=== PATIENT | male | born 1945 | race Caucasian/White ===

== ENCOUNTER 2022-05-12 06:00 | Outpatient (RCR) | payer OTHER, SELFPAY | END 2022-06-06 23:59 | disposition home or self-care (01) | LOC: AST 06:00 | PROVIDERS: Visit Provider Family Medicine | DX: R13.10 Dysphagia, unspecified (principal) | CPT/HCPCS: 92610 ==

== ENCOUNTER → 2022-08-09 09:00 | Outpatient (BNVA) | payer OTHER, SELFPAY | PROVIDERS: Visit Provider Internal Medicine Pulmonary Disease | DX: J44.1 Chronic obstructive pulmonary disease with (acute) exacerbation (principal); J96.11 Chronic respiratory failure with hypoxia; R42 Dizziness and giddiness; Z99.81 Dependence on supplemental oxygen; Z87.891 Personal history of nicotine dependence; M79.642 Pain in left hand; R20.0 Anesthesia of skin | CPT/HCPCS: 99214 ==

== ENCOUNTER → 2022-08-24 15:01 | Outpatient (BNVA) | payer OTHER, SELFPAY | PROVIDERS: Visit Provider Nurse Practitioner Family | DX: D17.1 Benign lipomatous neoplasm of skin and subcutaneous tissue of trunk (principal) | CPT/HCPCS: 88304 ==

== ENCOUNTER 2023-01-24 06:59 | Outpatient (CLI) | payer OTHER, SELFPAY ==
--- NOTE | 2023-01-24 07:20 | USCV_ITS ---
Diogenes Menendez Age: 77 Gender: M : 1945 Exam Date: 01/24/2023 08:12 Ordering Phys: René Logan MD Technologist: Lulu Shah [place]am [place] [facility] [place]: SOB COPD STAGE 4 BP: 140 / 67 HR: 77 Rhythm: Sinus Technical Quality: Adequate MEASUREMENTS (Male / Female) Normal Values 2D ECHO LV Diastolic Diameter PLAX 3.7 cm 4.2 - 5.9 / 3.9 - 5.3 cm LV Systolic Diameter PLAX 3.6 cm LV Chamber Size 3.0 cm IVS Diastolic Thickness 1.4 cm 0.6 - 1.0 / 0.6 - 0.9 cm IVS Systolic Thickness 1.5 cm LVPW Diastolic Thickness 1.8 cm 0.6 - 1.0 / 0.6 - 0.9 cm LVPW Systolic Thickness 1.6 cm RV Chamber Size 5.3 cm LVOT Diameter 1.9 cm LV Ejection Fraction 2D Teich 8.3 % LV Ejection Fraction MOD 2C 37.4 % LV Ejection Fraction 2C AL 38.5 % LA Diameter 4.5 cm LA Width 3.8 cm LA Height 4.9 cm RA Width 4.8 cm RA Height 4.5 cm Aorta at Sinotubular Diameter 3.7 cm IVC Diameter 3.2 cm M-MODE Aortic Annulus Diameter 3.7 cm LA Ao Ratio MM 1.5 MV E Point Septal Separation 0.5 cm DOPPLER TR Peak Velocity 302.2 cm/s TR Peak Gradient 36.5 mmHg TR Mean Velocity 217.2 cm/s TR Mean Gradient 23.3 mmHg TR Velocity Time Integral 75.5 cm TV Peak E Velocity 63.0 cm/s Right Atrial Pressure 15.0 mmHg Pulmonary Artery Systolic Pressu 51.5 mmHg RV Acceleration Time 0.1 s RV Ejection Time 0.3 s RV AcT/ET 0.3 FINDINGS Left Ventricle Technically limited quality echocardiogram because of poor ultrasonic windows. LV systolic function is normal with EF of 55 to 60%. No regional wall motion abnormalities are seen. Right Ventricle Not well visualized Right Atrium Not well visualized Left Atrium Normal in size Mitral Valve Grossly normal Aortic Valve Grossly normal. Doppler signals are not clear Tricuspid Valve Mild tricuspid regurgitation. RVSP is 50 to 55 mmHg. This is consistent with moderate pulmonary hypertension Pulmonic Valve Not well-visualized Pericardium Normal Aorta Aortic root and ascending aorta is mildly dilated. IVC Not well visualized CONCLUSIONS Technically limited quality echocardiogram because of poor ultrasonic windows. Contrast agent used LV systolic function is normal with EF 55 to 60% Mild tricuspid regurgitation Aortic root and ascecnding aorta are mildly dilated No comparison studies are available. Caleb Rosales MD (Electronically Signed) Final Date: 28 January 2023 13:02 S
--- NOTE | 2023-01-24 07:22 | CT_ITS ---
WS: [id number] LDCT LUNG CANCER SCREENING TECHNIQUE: Noncontrast CT of the chest with coronal and sagittal reformatted images. CLINICAL INFORMATION: SCREENING/HX OF NICOTINE DEPENDENCE COMPARISON: None. DLP: 186.91 mGy.cm DIvol: Mean CTDIvol: 4.60 (mGy) All CT scans at [facility] use at least one of these dose optimization techniques: automat ed exposure control; mA and/or kV adjustment per patient size (includes targeted exams where dose is matched to clinical indication); or iterative reconstruction. FINDINGS: Lungs are well aerated. No acute pulmonary infiltrates. No suspicious pulmonary parenchymal opacities. Normal caliber thoracic aorta. Aortic calcification. Coronary calcification. No mediastinal or hilar lymphadenopathy. No axillary lymphadenopathy. Adrenal glands are normal. Small hepatic cysts. Mild fa tty atrophy of the pancreas. Moderate thoracic kyphosis and thoracic scoliosis. IMPRESSION: CT/CT lung screening [id number] LUNG-RADS: 1-Negative FOLLOW UP: 12 Month: Continue annual screening with LDCT
[2023-01-24] MEDS: perflutren protein-a microsphr 0.22 mg/mL SDV 3 mL IV (09:02)
== END 2023-01-24 07:00 | disposition home or self-care (01) ==
LOC: RAD 07:01
PROVIDERS: PCP Nurse Practitioner Family; Visit Provider Internal Medicine Pulmonary Disease
DX: Z12.2 Encounter for screening for malignant neoplasm of respiratory organs (principal); Z87.891 Personal history of nicotine dependence; J44.9 Chronic obstructive pulmonary disease, unspecified; I07.1 Rheumatic tricuspid insufficiency
CPT/HCPCS: 71271; C8929; Q9956

== ENCOUNTER 2023-07-07 11:11 | Inpatient (IN) | payer OTHER, SELFPAY ==
[2023-07-07] VITALS (76 sets, daily range): BP systolic 70–156; BP diastolic 50–115; PULSE 65–148; RESP 14–31; TEMP 35.6–36.6; O2SAT 86–100; BMI 40.4
--- NOTE | 2023-07-07 11:13 | ECG_ITS ---
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 Measurements Intervals [place] Rate: 115 P: 70 SC: 170 QRS: 83 QRSD: 113 T: 61 QT: 325 QTc: 451 Interpretive Statements SINUS TACHYCARDIA MODERATE INTRAVENTRICULAR CONDUCTION DELAY [110+ ms QRS DURATION] NONSPECIFIC T-WAVE ABNORMALITY Compared to ECG 07/07/2023 11:27:56 Intraventricular conduction delay now present T-wave abnormality now present Ventricular premature complex(es) no longer present Myocardial infarct finding no longer present Electronically Signed On 07-09-2023 9:32:33 MANAGER CORPORATE by Caleb Rosales M.D. [id number]
--- NOTE | 2023-07-07 11:13 | CTR_ITS ---
PROCEDURE INFORMATION: Exam: CT Head Without Contrast Exam date and time: 07/07/2023 11:11 AM Age: 77 years old Clinical indication: Stroke-like symptoms; Left upper extremity numbness/paresthesia; Additional info: Symptoms of acute stroke TECHNIQUE: Imaging protocol: Computed tomography of the head without contrast. Radiation optimization: All CT scans at this facility use at least one of these dose optimization techniques: automated exposure control; mA and/or kV adjustment per patient size (includes targeted exams where dose is matched to clinical indication); or iterative reconstruction. Other technique: STROKE PROTOCOL was implemented. COMPARISON: No relevant prior studies available. RADIATION DOSE METRICS: Total DLP (mGy-cm): 1106.85 FINDINGS: Brain: Moderate central and cortical atrophy and small vessel ischemic disease. No intracranial hemorrhage. No midline shift. Cerebral ventricles: No ventriculomegaly. Paranasal sinuses: Mild ethmoidal air cell disease. Mastoid air cells: Visualized mastoid air cells are well aerated. Bones/joints: Unremarkable. No acute fracture. Soft tissues: Unremarkable. CT/CT head thrombolytic [id number] IMPRESSION: Age-related changes. ASSESSMENT: ASPECTS (Shari Stroke Program Early CT Score) is 10.
--- NOTE | 2023-07-07 11:20 | ED_ITS ---
HPI - Neuro Symptoms/Deficit 2 General: Chief Complaint: Neuro Symptoms/Deficit Stated Complaint: LEFT SIDE WEAKNESS Time Seen by Provider: 07/07/23 11:13 Source: EMS Mode of arrival: ambulatory History of Present Illness: 77-year-old male presented to the emerge ncy room nearly completely aphasic he initially responded he had a few questions with incoherent answers his initial NIH score is 18. His last known well was Approximately 45 minutes to an hour prior to arrival. He had gone out to take care of his dogs when he came back in the dogs came in and he collapsed on the floor and his found him near the back door. He normally is on 5 L by nasal cannula had not been complaining of any chest pain prior to this had not recently been ill. Onset (ago): minute(s) Time: 11:11 Last Observed Normal: 10:25 Timing confirmed by: spouse Location: speech, left face, left arm and left leg Severity: severe Quality: weak Exacerbating factors: none Context: sudden onset Associated symptoms: Deny chest pain Treatments Prior to Arrival: none Review of Systems 2 General: Reports: ROS unobtainable due to medical condition and ROS unobtainable due to mental status Card: Denies: chest pain [facility] 2 PFSH: Medical History (Updated 07/10/23 @ 12:07 by Boaz Haines MD) Sebaceous cyst Encounter for removal of sutures Chronic obstructive pulmonary disease HTN (hypertension) Glaucoma Hyperlipidemia Surgical History H/O hernia repair Family History Father Cancer Social History Smoking and tobacco/nicotine status: former use of tobacco/nicotine Quit status (tobacco/nicotine): has quit using Year quit tobacco: 2013 Former quit date comment: Hx of 1.5 PPD x 55 Years Second hand smoke exposure: No Alcohol intake: never Substance/Drug Use: never Lives independently: Yes Marital status: service: Yes Current occupational status: retired Do you think of yourself as: Straight/Heterosexual Current gender identity: Male NIH stroke score 2 NIHSS: Level Of Consciousness - 1a: 3 Level Of Consciousness Questions - 1b: Neither Correct Level Of Consciousness Commands - 1c: Neither Correct Best Gaze - 2: Forced Deviation Visual Mckee - 3: No Visual Loss Facial Palsy - 4: Normal Motor Arm Right - 5: No Drift Motor Arm Left - 5: No Drift Motor Leg Right - 6: No Drift Motor Leg Left - 6: No Drift Limb Ataxia - 7: Present In Two Limbs Sensory - 8: Mild To Moderate Loss Best Language - 9: Severe Aphasia Dysarthia - 10: Severe Dysarthia Extinction And Inattention - 11: 2 Score: Total Score: 18 Physical Exam 2 HENMT: COMMON NORMALS: normocephalic, atraumatic and hearing grossly normal bilaterally HEAD & SCALP: normocephalic and atraumatic Cardio: COMMON NORMALS: regular rate, regular rhythm and No murmurs present (Cardio) RATE: regular rate RHYTHM: regular rhythm GI: COMMON NORMALS: Soft to palpation and No hepatosplenomegaly present A USCULTATION: Yes normoactive bowel sounds PALPATION: Yes Soft to palpation, No Tenderness to palpation present (GI), No Guarding due to palpation present (GI) and Yes No hepatosplenomegaly present Extremity: COMMON NORMALS: normal to inspection, capillary refill normal, no clubbing, cyanosis or edema, no calf tenderness and no pedal edema Skin: COMMON NORMALS: no rashes or lesions noted GENERAL SKIN EXAM: no rashes or lesions noted Procedures Intubation Time out performed: Yes sedative: Etomidate paralytic: Succinylcholine Laryngoscope: fiber optic video scope ET Tube Size: 8 ET Tube Uncuffed: No Tube Secured Depth (cm): 22 Tube Secured Location: teeth Tube Placement Confirmation: visualized tube passing through cords, equal breath sounds bilaterally and confirmation by capnometry Patient Tolerated Procedure: well Intubation Complications: none Course 2 Vital Signs: Vital signs: Vital Signs Temperature 99.4 F 07/10/23 05:30 Pulse Rate 74 07/10/23 20:30 Respiratory Rate 16 07/10/23 19:33 Blood Pressure 49/29 07/10/23 20:30 Pulse Oximetry 73 L 07/10/23 20:30 Oxygen Delivery Me thod Mechanical Ventil ation 07/10/23 19:33 Oxygen Flow Rate 3 07/07/23 11:13 Fraction of Inspir ed Oxygen 50 07/10/23 19:33 MDM - Neuro Symptoms/Deficit Medical Decision Making Aced on timing and NIH score patient was given TNKase first troponin is 82- second form is markedly elevated with a positive delta is initial EKG showed some subtle ST depression the second [address] depression. did not reported any indication of chest pain from the patient prior to this episode. He was given TNKase CTA was done did not show thromboembolism but did show severe stenosis of his right carotid artery.. Second troponin was markedly elevated I did let the hospitalist know about this. Patient deteriorated shortly after arrival here and was emergently intubated and sedated. Patient was hypotensive and became even more so after sedation with intubation and was started on Levophed to maintain pressure. No acute ST elevations on his EKGs. Medical Records I reviewed the patient's medical records. Lab Data I reviewed the patient's lab results. 07/09/23 03:40 07/10/23 07:13 Radiology Impressions Head/Neck CTA 07/07/23 11:49 IMPRESSION: No large vessel stenosis or occlusion. IMPRESSION: 1. Examination is limited due motion artifact especially at the origin of the right proximal internal carotid artery however, there is a greater than 70% suspected severe stenosis of this vessel. Please see images 7/142 through 148. 2. Suspect motion/breathing artifact rather than a high-grade stenosis of the right vertebral artery. 3. Lung infiltrates. 4. Endotracheal tube. REFERENCES: NASCET CRITERIA. The degree of stenosis in the cervical segment of the internal carotid artery is based on NASCET criteria. Normal is no stenosis. Mild is less than 50% stenosis. Moderate is 50-69% stenosis. Severe is 70% to 99% stenosis. Total occlusion is no detectable patent lumen. Chest CTA 07/07/23 14:56 IMPRESSION: 1. Endotracheal tube in place. 2. Severe calcified coronary artery disease. 3. Borderline to mild cardiomegaly. 4. No acute findings. Laboratory Results WBC 9.89 10^3/uL (3.29-11.43) 07/07/23 11:23 RBC 4.11 10^6/uL (3.85-5.65) 07/07/23 11:23 Hgb 12.50 g/dL (11.27-16.99) 07/07/23 11:23 Hct 40.2 % (37-53) 07/07/23 11:23 MCV 97.8 fl (82-101) 07/07/23 11:23 MCH 30.4 pg (27-33) 07/07/23 11:23 MCHC 31.1 g/dL (30-55) 07/07/23 11:23 RDW 13.7 % (12.1-15.1) 07/07/23 11:23 Plt Count 146 10^3/cmm (157-399) L 07/07/23 11:23 MPV 10.1 fL (7.4-10.4) 07/07/23 11:23 Neut % (Auto) 77.5 % 07/07/23 11:23 Lymph % (Auto) 13.7 % 07/07/23 11:23 Stark % (Auto) 7.2 % 07/07/23 11:23 Eos % (Auto) 0.7 % 07/07/23 11:23 Baso % (Auto) 0.3 % 07/07/23 11:23 Neut # (Auto) 7.67 10^3/uL (1.8-7.7) 07/07/23 11:23 Lymph # (Auto) 1.4 10^3/uL (0.8-4.8) 07/07/23 11:23 Stark # (Auto) 0.7 10^3/uL (0.2-0.9) 07/07/23 11:23 Eos # (Auto) 0.1 10^3/uL (0.0-0.8) 07/07/23 11:23 Baso # (Auto) 0.0 10^3/uL (0.0-0.1) 07/07/23 11:23 Nucleated RBC % (auto) 0 % 07/07/23 11:23 Nucleated RBCs # 0.0 /100WBC 07/07/23 11:23 PT 13.90 SECONDS (12.1-14.9) 07/07/23 11:23 INR 1.04 (0.8-1.2) 07/07/23 11:23 APTT 28.1 SECONDS (23.9-36.7) 07/07/23 11:23 Sodium 140 mmol/L (136-145) 07/07/23 11:23 Potassium 4.4 mmol/L (3.5-5.1) 07/07/23 11:23 Chloride 98 mmol/L (98-107) 07/07/23 11:23 Carbon Dioxide 27 mmol/L (22-29) 07/07/23 11:23 Anion Gap 19.4 (5-19) H 07/07/23 11:23 BUN 24 mg/dL (8-23) H 07/07/23 11:23 Creatinine 1.7 mg/dL (0.7-1.2) H 07/07/23 11:23 GFR Calculation Not Reportable 07/07/23 11:23 Glucose 190 mg/dL (65-115) H 07/07/23 11:23 POC Glucose 181 mg/dL (70-110) H 07/07/23 11:25 Calculated Osmolality 299 mOsm/kg (285-295) H 07/07/23 11:23 Calcium 8.7 mg/dL (8.5-10.5) 07/07/23 11:23 Total Bilirubin 0.6 mg/dL (0.15-1.2) 07/07/23 11:23 AST 17 U/L (0-40) 07/07/23 11:23 ALT 17 U/L (0-41) 07/07/23 11:23 Alkaline Phosphatase 95 U/L (40-130) 07/07/23 11:23 Troponin T Baseline 87 ng/L (0-15) H 07/07/23 11:23 Troponin T 120 Minute 207.4 ng/L (0-15) H 07/07/23 13:31 Delta Troponin T 120.4 ABS# (0-10) H* 07/07/23 13:31 Total Protein 6.7 g/dL (6.6-8.7) 07/07/23 11:23 Albumin 4.0 g/dL (3.5-5.2) 07/07/23 11:23 Globulin 2.7 g/dL (1.3-4.6) 07/07/23 11:23 TSH 2.09 uIU/mL (0.27-4.20) 07/07/23 13:31 Urine Color Yellow (Yellow) 07/07/23 13:10 Urine Appearance Clear (CLEAR) 07/07/23 13:10 Urine pH 5 (5-7) 07/07/23 13:10 Ur Specific [place] 1.020 (1.005-1.030) 07/07/23 13:10 Urine Protein 2+ (Negative) H 07/07/23 13:10 Urine Glucose (UA) Norm (Normal) 07/07/23 13:10 Urine Ketones Negative (Negative) 07/07/23 13:10 Urine Blood 3+ (Negative) H 07/07/23 13:10 Urine Nitrate Negative (Negative) 07/07/23 13:10 Urine Bilirubin Neg (Negative) 07/07/23 13:10 Urine Urobilinogen Norm mg/dL (Negative) 07/07/23 13:10 Ur Leukocyte Esterase Negative (Negative) 07/07/23 13:10 Urine RBC 0-4 /hpf (0-2) H 07/07/23 13:10 Urine WBC 0-4 /hpf (0-5) H 07/07/23 13:10 Ur Squamous Epith Cells None /hpf (0-5) 07/07/23 13:10 Amorphous Sediment Not Reportable 07/07/23 13:10 Urine Bacteria 1+ /hpf (NONE) H 07/07/23 13:10 Hyaline Casts 15-25 /lpf H 07/07/23 13:10 Coarse Granular Casts 5-10 /lpf H 07/07/23 13:10 Urine Opiates Screen Negative ng/mL (Negative) 07/07/23 13:10 Ur Barbiturates Screen Negative ng/mL (Negative) 07/07/23 13:10 Ur Phencyclidine Scrn Negative ng/mL (Negative) 07/07/23 13:10 Ur Amphetamines Screen Negative ng/mL (Negative) 07/07/23 13:10 U Benzodiazepines Scrn Negative ng/mL (Negative) 07/07/23 13:10 Urine Cocaine Screen Negative ng/mL (Negative) 07/07/23 13:10 U Marijuana (THC) Screen Negative ng/mL (Negative) 07/07/23 13:10 All radiology interpretation(s) finalized by discharge Discharge Plan Discharge Patient Disposition: Admitted As Inpatient Admit Provider: Boaz Haines Condition: Stable Coding Level of Care Code ED Seater Assembler for Nalini Estevez
--- NOTE | 2023-07-07 11:27 | ECG_ITS ---
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 Measurements Intervals [place] Rate: 122 P: 72 IL: 157 QRS: 89 QRSD: 112 T: 72 QT: 354 QTc: 506 Interpretive Statements SINUS TACHYCARDIA WITH OCCASIONAL VENTRICULAR PREMATURE COMPLEXES SEPTAL MYOCARDIAL INFARCTION , OF INDETERMINATE AGE [40+ ms Q WAVE IN V1/V2] Compared to ECG 01/05/2017 07:44:47 Ventricular premature complex(es) now present Myocardial infarct finding now present Sinus rhythm no longer present Electronically Signed On 07-09-2023 9:32:48 ESCAPEMENT MATCHER by Caleb Rosales M.D. [id number]
[2023-07-07 11:28] LABS: Basophils % 0.3 %; Eosinophils # 0.1 10^3/uL (0.0-0.8); Eosinophils % 0.7 %; Hematocrit 40.2 % (37-53); Lymphocytes # 1.4 10^3/uL (0.8-4.8); Lymphocytes % 13.7 %; Mean Corpuscular HGB Conc 31.1 g/dL (30-55); Mean Corpuscular Hemoglobin 30.4 pg (27-33); Mean Corpuscular Volume 97.8 fl (82-101); Mean Platelet Volume 10.1 fL (7.4-10.4); Monocytes # 0.7 10^3/uL (0.2-0.9); Monocytes % 7.2 %; Neutrophils # 7.67 10^3/uL (1.8-7.7); Neutrophils % 77.5 %; Nucleated Red Blood Cells % 0 %; Platelet Count 146 10^3/cmm (157-399); Red Blood Count 4.11 10^6/uL (3.85-5.65); Red Cell Distribution Width 13.7 % (12.1-15.1); White Blood Count 9.89 10^3/uL (3.29-11.43)
--- NOTE | 2023-07-07 11:29 | XRR_ITS ---
PROCEDURE INFORMATION: Exam: XR Chest Exam date and time: 07/07/2023 11:38 AM Age: 77 years old Clinical indication: Device placement; Ett placement (vent status); Additional info: Dyspnea/cough TECHNIQUE: Imaging protocol: Radiologic exam of the chest. Views: 1 view. COMPARISON: CT lung screening [id number] 01/24/2023 7:56 AM FINDINGS: Tubes, catheters and devices: There is an endotracheal tube with its tip 4 cm above the jean. Lungs: Unremarkable. No consolidation. Pleural spaces: The left costophrenic angle is not seen but there is no right pleural effusion or pneumothorax. Heart/Mediastinum: Cardiomegaly. Bones/joints: Unremarkable. XR/XR chest 1V portable [id number] IMPRESSION: No focal infiltrates within new endotracheal tube.
[2023-07-07 11:30] LABS: Glucose Point of Care 181 mg/dL (70-110)
[2023-07-07] MEDS: tenecteplase 50mg Kit (STROKE) 50 MG (11:32)
[2023-07-07] MEDS: etomidate 2 mg/mL INJ SDV 10 mL 30 MG IVP (11:33)
[2023-07-07] MEDS: succinylcholine 20 mg/mL SDV 10mL 120 MG IVP (11:34)
[2023-07-07] MEDS: propofol 10 mg/mL SDV 20 mL 50 MG IVP (11:40)
[2023-07-07] MEDS: vecuronium 10 mg SDV IVP (11:40)
[2023-07-07] MEDS: sodium chloride 0.9% 1,000 ML 999 ML IV (11:40)
[2023-07-07 11:47] LABS: Troponin(5th) Baseline 87 ng/L (0-15)
[2023-07-07 11:49] LABS: Alanine Aminotransferase 17 U/L (0-41); Alkaline Phosphatase 95 U/L (40-130); Anion Gap 19.4 (5-19); Aspartate Amino Transferase 17 U/L (0-40); Blood Urea Nitrogen 24 mg/dL (8-23); Calcium 8.7 mg/dL (8.5-10.5); Carbon Dioxide 27 mmol/L (22-29); Chloride 98 mmol/L (98-107); Globulin 2.7 g/dL (1.3-4.6); Glucose 190 mg/dL (65-115); Osmolality Calculated 299 mOsm/kg (285-295); Potassium 4.4 mmol/L (3.5-5.1); Sodium 140 mmol/L (136-145); Total Bilirubin 0.6 mg/dL (0.15-1.2); Total Protein 6.7 g/dL (6.6-8.7)
--- NOTE | 2023-07-07 11:49 | CTR_ITS ---
PROCEDURE INFORMATION: Exam: CTA Head With Contrast, Arteriography Exam date and time: 07/07/2023 1:55 PM Age: 77 years old Clinical indication: Weakness; Additional info: Acute CVA TECHNIQUE: Imaging protocol: Computed tomographic angiography of the head with contrast. Exam focused on the arteries. 3D rendering (Not supervised by radiologist): MIP and/or 3D reconstructed images were created by the technologist. Radiation optimization: All CT scans at this facility use at least one of these dose optimization techniques: automated exposure control; mA and/or kV adjustment per patient size (includes targeted exams where dose is matched to clinical indication); or iterative reconstruction. Contrast material: OMNI 350; Contrast volume: 100 ml; Contrast route: INTRAVENOUS (IV); COMPARISON: CT head thrombolytic [id number] 07/07/2023 11:11 AM RADIATION DOSE METRICS: Total DLP (mGy-cm): 662.33 FINDINGS: ANTERIOR CIRCULATION: Right internal carotid artery: Intracranial segment is patent with no significant stenosis. No aneurysm. Right middle cerebral artery: No occlusion or significant stenosis. No aneurysm. Right anterior cerebral artery: No occlusion or significant stenosis. No aneurysm. Left internal carotid artery: Intracranial segment is patent with no significant stenosis. No aneurysm. Left middle cerebral artery: No occlusion or significant stenosis. No aneurysm. Left anterior cerebral artery: No occlusion or significant stenosis. No aneurysm. POSTERIOR CIRCULATION: Right vertebral artery: No occlusion or significant stenosis. No aneurysm. Left vertebral artery: No occlusion or significant stenosis. No aneurysm. Basilar artery: No occlusion or significant stenosis. No aneurysm. Right posterior cerebral artery: No occlusion or significant stenosis. No aneurysm. Left posterior cerebral artery: No occlusion or significant stenosis. No aneurysm. Brain: Please see the CT brain report. No evidence of abnormal enhancement. Cerebral ventricles: No ventriculomegaly. Bones/joints: Unremarkable. No acute fracture. Soft tissues: Unremarkable. PROCEDURE INFORMATION: Exam: CTA Neck With Contrast Exam date and time: 07/07/2023 1:55 PM Age: 77 years old Clinical indication: Weakness; Additional info: Acute CVA TECHNIQUE: Imaging protocol: Computed tomographic angiography of the neck with contrast. Exam focused on the cervical segments of the vasculature. 3D rendering (Not supervised by radiologist): MIP and/or 3D reconstructed images were created by the technologist. Radiation optimization: All CT scans at this facility use at least one of these dose optimization techniques: automated exposure control; mA and/or kV adjustment per patient size (includes targeted exams where dose is matched to clinical indication); or iterative reconstruction. Contrast material: OMNI 350; Contrast volume: 100 ml; Contrast route: INTRAVENOUS (IV); COMPARISON: CT head thrombolytic [id number] 07/07/2023 11:11 AM RADIATION DOSE METRICS: Total DLP (mGy-cm): 662.35 FINDINGS: Tubes, catheters and devices: There is an endotracheal tube with its tip 3 cm above the jean. Right common carotid artery: Motion is seen at the carotid artery bifurcation on the right. However, there appears to be a 70+ % stenosis with extensive peripheral calcification. Past the origin the vessel appears normal. Right internal carotid artery: No stenosis of the extracranial segment. No dissection or occlusion. Right external carotid artery: No occlusion or stenosis of the origin. Left common carotid artery: No stenosis. No dissection or occlusion. Left internal carotid artery: No stenosis of the extracranial segment. No dissection or occlusion. Left external carotid artery: No occlusion or stenosis of the origin. Right vertebral artery: Motion artifact suspected involving the origin of the right vertebral artery simulating a high-grade stenosis. Left vertebral artery: Calcification with 30% stenosis involving the origin of the left vertebral artery. Soft tissues: Normal. No significant soft tissue swelling. Bones/joints: No acute fracture. Lungs: Incompletely seen infiltrate is seen posteriorly within the superior segment of the right lower lobe and minimally posteriorly within the right upper lobe. Minimal ill-defined infiltrate is seen anteriorly within the left upper lobe. Other findings: There is a bovine aortic arch. CT/CT angio headne* [id number] IMPRESSION: No large vessel stenosis or occlusion. IMPRESSION: 1. Examination is limited due motion artifact especially at the origin of the right proximal internal carotid artery however, there is a greater than 70% suspected severe stenosis of this vessel. Please see images 7/142 through 148. 2. Suspect motion/breathing artifact rather than a high-grade stenosis of the right vertebral artery. 3. Lung infiltrates. 4. Endotracheal tube. REFERENCES: NASCET CRITERIA. The degree of stenosis in the cervical segment of the internal carotid artery is based on NASCET criteria. Normal is no stenosis. Mild is less than 50% stenosis. Moderate is 50-69% stenosis. Severe is 70% to 99% stenosis. Total occlusion is no detectable patent lumen.
[2023-07-07 11:51] LABS: INR 1.04 (0.8-1.2)
[2023-07-07 11:52] LABS: Partial Thromboplastin Time 28.1 SECONDS (23.9-36.7)
[2023-07-07 11:53] LABS: Creatinine Clr Calc Pharmacy 54.9516
--- NOTE | 2023-07-07 11:53 | PC.PHAR ---
Addendum entered by Madhuri Fraga 07/07/23 12:18: medications were put on the brown cabinet in the pts room-medications entered are from the bottles the pt brought in and what ext shows has been filled and what states the pt takes that she didnt send- Original Note: pt is intubated unable to verify medications-called pts to verify medications pts states that they sent all the meds with the pt-meds are not in pts room the [facility] is going to call the ambulance to see if they have the pts medications with them-
[2023-07-07] MEDS: norepinephrine 4 MG/250 ML BAG 22.5 MG IV (12:00)
[2023-07-07] MEDS: midazolam hcl 100 MG/100 ML BAG IV (12:01)
[2023-07-07] MEDS: fentaNYL 1,000 MCG/100 ML BAG 2.5 MCG IV (12:06)
--- NOTE | 2023-07-07 12:06 | PC.NURSE ---
per Dr. Vogt to start drips as following: Fentanyl: 25mcg/hr Midazolam 2mg/hr Norepinephrine 6mcg/min pt blood pressure currently 77/54 oxygen saturation: 100% [facility]. ventilated
[2023-07-07] MEDS: sodium chloride 0.9% 1,000 ML 150 ML IV (12:25)
[2023-07-07] MEDS: sodium chloride 0.9% 500 ML 999 ML IV (12:33)
--- NOTE | 2023-07-07 12:52 | PC.RESP ---
No ABG drawn after intubation per Dr. Vogt orders
--- NOTE | 2023-07-07 13:06 | PC.NURSE ---
per Dr. Vogt to not insert OG tube d/t TNKase administration.
[2023-07-07 13:26] LABS: Amphetamines Screen Urine Negative (Negative); Barbiturates Screen Urine Negative (Negative); Benzodiazepines Screen Urine Negative (Negative); Cocaine Screen Urine Negative (Negative); Opiate Screen Urine Negative (Negative); PCP Screen Urine Negative (Negative); THC Screen Urine Negative (Negative)
--- NOTE | 2023-07-07 13:29 | ECG_ITS ---
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 Measurements Intervals [place] Rate: 117 P: 0 UT: 0 QRS: 88 QRSD: 125 T: 69 QT: 353 QTc: 494 Interpretive Statements ATRIAL FLUTTER WITH RAPID VENTRICULAR RESPONSE SEPTAL MYOCARDIAL INFARCTION , OF INDETERMINATE AGE [40+ ms Q WAVE IN V1/V2] Compared to ECG 07/07/2023 11:27:56 Sinus tachycardia no longer present Ventricular premature complex(es) no longer present Myocardial infarct finding still present Electronically Signed On 07-09-2023 9:39:59 HEAD OF [employer]ES [employer]ION by Caleb Rosales M.D. [id number]
[2023-07-07 13:34] LABS: Blood Urine 3+ (Negative); Glucose Urine UA Norm (Normal); Ketones Urine Negative (Negative); Protein Urine 2+ (Negative); Urine Appearance Clear (CLEAR); Urine Color Yellow (Yellow); pH Urine 5 (5-7)
[2023-07-07 13:35] LABS: Add Urine Culture? No; Add Urine Microscopic? YES; Bacteria Urine 1+ /hpf; Bilirubin Urine Neg (Negative); Hyaline Casts Urine 15-25 /lpf; Leukocyte Esterase Urine Negative (Negative); Nitrate Urine Negative (Negative); RBC Urine 0-4 /hpf (0-2); Urobilinogen Urine Norm (Negative); WBC Urine 0-4 /hpf (0-5)
[2023-07-07] MEDS: iohexol 350 mg/mL 500 mL Btl (per mL) IV ×2 (14:14→17:05)
[2023-07-07 14:18] LABS: Troponin 5 2HR 207.4 ng/L (0-15)
[2023-07-07 14:19] LABS: Troponin 5 2HR Delta 120.4 ABS# (0-10)
[2023-07-07] MEDS: midazolam 1 mg/mL INJ 2 mL 3 MG IVP (14:21)
--- NOTE | 2023-07-07 14:53 | PC.NURSE ---
patient attempting to pull on ET tube, attempted to increase sedation, unsuccessful pt still attempting to pull on ET tube. Dr. Vogt notified. per Dr. Vogt to apply soft restraints to bilateral wrists. soft wrist restraints applied at 1453.
--- NOTE | 2023-07-07 14:56 | CTR_ITS ---
PROCEDURE INFORMATION: Exam: CTA Chest With Contrast Exam date and time: 07/07/2023 4:50 PM Age: 77 years old Clinical indication: Shortness of breath; Patient HX: PT on vent; Additional info: Hypoxia TECHNIQUE: Imaging protocol: Computed tomographic angiography of the chest with contrast. Exam focused on the arteries. 3D rendering (Not supervised by radiologist): MIP and/or 3D reconstructed images were created by the technologist. Radiation optimization: All CT scans at this facility use at least one of these dose optimization techniques: automated exposure control; mA and/or kV adjustment per patient size (includes targeted exams where dose is matched to clinical indication); or iterative reconstruction. Contrast material: OMNI 350; Contrast volume: 100 ml; Contrast route: INTRAVENOUS (IV); COMPARISON: CT lung screening [id number] 01/24/2023 7:56 AM RADIATION DOSE METRICS: Total DLP (mGy-cm): 588.31 FINDINGS: Tubes, catheters and devices: Endotracheal tube in place. Pulmonary arteries: Normal. No pulmonary emboli. Aorta: Calcification of the abdominal aorta and/or iliac arteries consistent with atherosclerotic vessel disease. Calcification of the thoracic aorta and/or great vessels consistent with atherosclerotic vessel disease. Lungs: Unremarkable. No consolidation. No masses. Pleural spaces: Unremarkable. No pneumothorax. No pleural effusion. Heart: Moderate calcification in the mitral valve and/or mitral valve annulus. Borderline to mild cardiomegaly. Coronary arteries: Severe calcified coronary artery disease. Lymph nodes: Unremarkable. No enlarged lymph nodes. Bones/joints: Mild thoracic spondylosis. Soft tissues: Examination is limited by artifact from one or both arms by the patient's side. CT/CT angio chest PE protcl [id number] IMPRESSION: 1. Endotracheal tube in place. 2. Severe calcified coronary artery disease. 3. Borderline to mild cardiomegaly. 4. No acute findings.
[2023-07-07] MEDS: amiodarone 50 mg/mL SDV 3 mL 150 MG IVP (14:57)
--- NOTE | 2023-07-07 15:11 | PC.NURSE ---
per Dr. Vogt to start drips as followed: Amiodorone 1mg/min
--- NOTE | 2023-07-07 15:13 | PC.NURSE ---
per Dr. Vogt to start drips as followed: Amiodarone at 1mg/min
--- NOTE | 2023-07-07 16:23 | P.HP_ITS ---
Providers/Chief Complaint 2 Primary Care Provider: Karla Scherer, RIKKI Chief Complaint: LEFT SIDE WEAKNESS History of Present Illness Diogenes Menendez is a 77 year old male who had code stroke called today, he was brought in by the EMS, patient is intubated at the time of my evaluation. I called neurology Dr. Bhat at [facility] to discuss 70% stenosis right internal carotid which would need endarterectomy patient is very unstable at this point he is getting CTA chest rule out thromboembolic phenomenon. [facility] will take him once he is stabilized. I called his to get more information is stating that today she was in her kitchen when Mr. Haider ready when outside with 2 dogs, after few minutes one of the dogs came back followed by the second which was odd because as per the normally her would come in with the second dog inside the home through pantry. Her second dog was circling around her and kept going outside when she opened the door she noticed her had fallen on the patio of the pantry at that time EMS was called, as per the EMS patient was not able to move any of his extremities, code stroke was called and he was brought to the ER where he was intubated while he was getting TNKase his NIH score was 11, however difficult to calculate because patient was nonresponsive Patient is on IV fluids and Levophed previous echo showed preserved ejection fraction, at baseline he uses 5 L of oxygen As per the he leads a sedentary lifestyle he is not very active because of high oxygen requirement He quit smoking 5 years ago, Significant troponin, not a candidate to be on aspirin Plavix or heparin because he has received TNKase already Review of Systems 2 General: Reports: ROS unobtainable due to endotracheal tube and ROS unobtainable due to medical condition Medications/Allergies Home Medications Medication Instructions Recorded Confirmed Last Taken Type amlodipine 2.5 mg-benazepril 10 mg 1 cap PO DAILY 12/13/20 07/07/23 Unknown History capsule atorvastatin 40 mg tablet 20 mg PO DAILY 12/13/20 07/07/23 Unknown History ipratropium 0.5 mg-albuterol 3 mg 3 ml inhalation QID PRN unknown 12/13/20 07/07/23 Unknown History (2.5 mg base)/3 mL nebulization soln latanoprost 0.005 % eye drops 1 drp ophthalmic (eye) DAILY 12/13/20 07/07/23 Unknown History meloxicam 15 mg tablet 15 mg PO DAILY PRN Pain 12/13/20 07/07/23 Unknown History montelukast 10 mg tablet 10 mg PO QPM 12/13/20 07/07/23 Unknown History (Singulair) albuterol sulfate 90 mcg/actuation 2 puff inhalation Q6H PRN 06/13/23 07/07/23 Unknown Rx aerosol inhaler shortness of breath or wheezing #8.5 grams aspirin 81 mg tablet,delayed 81 mg PO DAILY 07/07/23 07/07/23 Unknown History release bisacodyl 5 mg tablet See Rx Instructions .Route .COMPLEX 07/07/23 07/07/23 Unknown History brinzolamide 1 %-brimonidine 0.2 % See Rx Instructions .Route .COMPLEX 07/07/23 07/07/23 Unknown History eye drops,suspension (Simbrinza) budesonide 160 mcg-glycopyr 9 2 inh inhalation BID 07/07/23 07/07/23 Unknown History mcg-formot 4.8 mcg/actuation HFA inhaler (Breztri Aerosphere) guaifenesin 400 mg tablet 400 mg PO Q4H PRN thin mucus 07/07/23 07/07/23 Unknown History oxybutynin chloride 10 mg 10 mg PO DAILY 07/07/23 07/07/23 Unknown History tablet,extended release 24 hr oxybutynin chloride 5 mg 5 mg PO DAILY 07/07/23 07/07/23 Unknown History tablet,extended release 24 hr Allergies Allergy/AdvReac Type Severity Reaction Status Date / Time No Known Allergies Allergy Verified 06/13/23 12:55 PFSH Acute 2 PFSH: Medical History Chronic obstructive pulmonary disease HTN (hypertension) Glaucoma Hyperlipidemia Surgical History H/O hernia repair Family History Father Cancer Social History Smoking and tobacco/nicotine status: former use of tobacco/nicotine Quit status (tobacco/nicotine): has quit using Year quit tobacco: 2013 Former quit date comment: Hx of 1.5 PPD x 55 Years Second hand smoke exposure: No Alcohol intake: never Substance/Drug Use: never Lives independently: Yes Marital status: service: Yes Current occupational status: retired Do you think of yourself as: Straight/Heterosexual Current gender identity: Male Vitals/I&O/Wt Last Vital Signs Temp 97.8 F 07/07/23 11:13 Pulse 76 07/07/23 15:55 Resp 19 H 07/07/23 15:55 BP 88/66 07/07/23 15:55 Pulse Ox 97 07/07/23 15:55 O2 Del Method Mechanical Ventilation 07/07/23 15:11 O2 Flow Rate 3 07/07/23 11:13 FiO2 100 07/07/23 14:18 07/07/23 07/07/23 07/07/23 06:59 14:59 22:59 Intake Total 53.441 / 53.441 41.175 / 94.616 Balance 53.441 / 53.441 41.175 / 94.616 Weight last 48 hrs Weight 138.845 kg Physical Exam 2 Narrative: Patient intubated and sedated Morbid obese Assisted bilateral breath sounds Neuroexam is limited Distended abdomen S1, S2 Sinus rhythm Urinary Catheter Management: Centeno: Cath Placed During This Visit: yes Urinary Catheter Date of Insertion: 07/07/23 Urinary Catheter Time of Insertion: 13:04 Data 07/08/23 03:35 07/08/23 03:35 Micro: Microbiology 07/07/23 12:20 Gram Stain - Final Sputum - Endotracheal Tube Aspirate A&P Assessment and plan (1) Acute CVA (cerebrovascular accident): (2) Non-STEMI (non-ST elevated myocardial infarction): (3) Respiratory failure requiring intubation: (4) Sedentary lifestyle: (5) Acute ischemic right ICA stroke: (6) Cardiomegaly: (7) Cardiogenic shock: (8) Chronic respiratory failure with hypoxia: Plan Acute CVA Status post TNKase Cardiogenic shock Currently on Levophed Cardiomegaly noted on the imaging Pericardial effusion, rule out cardiac tamponade Stat echo requested Non-STEMI Not a candidate to be on aspirin Plavix or heparin received TNKase already Right carotid circulation stenosis will need endarterectomy once he is stable [facility] will take him N.p.o. We could not get ABG because of TNKase status NG also was not attempted after TNKase History taken from the , spoken with Dr. Bhat neurology [facility] Review of records revealed patient had preserved action fraction, was following of Dr. Burrows he was on 5 L nasal cannula, Full code Patient lives with his at home, In suspicion of cardiac arrhythmia amiodarone drip has been started At risk of cardiac arrest, guarded prognosis It took me a lot of time to coordinate care, spoke with the ER physician, review of records, spoke with Dr. Home Gutiérrez neurology, Spoke with RT Attestations 2 Medical Necessity Statement*: More than 2 midnights anticipated, guarded prognosis Coding Level of Care Code Critical Care >/= 30 minutes Critical care time (in minutes): 90 The high probability of a clinically significant, sudden or life threatening deterioration, as referenced in this documentation, required my full and direct attention, intervention and personal management. The critical care time shown is in addition to time spent performing any reported separately billable procedures and includes the following: [x] Data and vital sign review and interpretation [x ] Patient assessment, examination and intervention [x] Medication orders and management [x] Patient/Family updates as able [x] Care Coordination and Documentation. Diagnoses Acute CVA (cerebrovascular accident) I63.9 Non-STEMI (non-ST elevated myocardial infarction) I21.4 Respiratory failure requiring intubation J96.90 Sedentary lifestyle Z91.89 Acute ischemic right ICA stroke I63.231 Cardiomegaly I51.7 Cardiogenic shock R57.0 Chronic respiratory failure with hypoxia J96.11
--- NOTE | 2023-07-07 16:32 | PC.NURSE ---
report called to Matilda in ICU, no further questions at end of report.
--- NOTE | 2023-07-07 16:35 | PC.NURSE ---
: Jensen this nurse has updated Jensen on patient status
--- NOTE | 2023-07-07 17:13 | PC.NURSE ---
patient attempting to pull on ET tube, attempted to increase sedation, unsuccessful. Dr. Vogt notified. per Dr. Vogt to apply soft restraints to bilateral wrists. soft wrist restraints applied at 1453.
[2023-07-07] MEDS: ipratropium-albuterol 3 mL Neb INHALATION ×2 (17:27→19:46)
--- NOTE | 2023-07-07 17:29 | ECG_ITS ---
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 Measurements Intervals [place] Rate: 83 P: 85 MT: 213 QRS: 83 QRSD: 112 T: 77 QT: 373 QTc: 440 Interpretive Statements SINUS RHYTHM WITH FIRST DEGREE AV BLOCK WITH OCCASIONAL VENTRICULAR PREMATURE COMPLEXES SEPTAL MYOCARDIAL INFARCTION , OF INDETERMINATE AGE [40+ ms Q WAVE IN V1/V2] Compared to ECG 07/07/2023 14:22:18 Ventricular premature complex(es) now present First degree AV block now present Atrial flutter no longer present Myocardial infarct finding still present Electronically Signed On 07-09-2023 9:39:36 DIRECTOR PHARMACY SERVICES by Caleb Rosales M.D. [id number]
[2023-07-07] MEDS: hydrocortisone 100 mg/2 mL SDV IVP (17:30)
[2023-07-07] MEDS: pantoprazole 40 mg SDV IVP (17:30)
--- NOTE | 2023-07-07 17:31 | PC.RESP ---
no abg draw at this time due to tknase. per dr pratt
[2023-07-07] MEDS: sodium chloride 0.9% 1,000 ML 100 ML IV ×2 (17:38→20:31)
[2023-07-07 17:44] LABS: Thyroid Stimulating Hormone 2.09 uIU/mL (0.27-4.20)
[2023-07-07 17:58] LABS: Glucose Point of Care 106 mg/dL (70-110)
[2023-07-07 18:51] LABS: Troponin 5 6HR 417.8 ng/L (0-15); Troponin 5 6HR Delta 330.8 ng/L (0-12)
[2023-07-07 18:54] LABS: NT Pro B Type Natriuretic Pept 645 pg/mL (0-450)
[2023-07-07] MEDS: norepinephrine 4 MG/250 ML BAG 45 MG IV (19:35)
[2023-07-07] MEDS: fentaNYL 1,000 MCG/100 ML BAG 10 MCG IV (20:56)
--- NOTE | 2023-07-07 21:22 | PM.CONSULT ---
Providers/Reason For Consult Consulting Physician/Specialty*: Caleb Rosales MD/ Cardiology Reason for Consult*: NSTEMI Requesting Physician: Dr Vogt Attending Physician: Boaz Haines MD Primary Care Provider: RIKKI Campbell History of Present Illness History of Present Illness Diogenes Menendez is a 77 year old male who was found down by . History taken from H&P as patient is currently intubated. No family available at this time. He had gone out to walk the dogs and had fallen down. At time of EMS evaluation per notes, patient was not responsive and could not move extremities. He received TNKase. Was intubated. Cardiology consulted because troponins have trended up significantly. Previous echo from last year showed normal LV systolic function. He is at baseline 5 L oxygen secondary to COPD. Troponin increased from baseline of 87 to 417 at 6 hours. EKG showed initially sinus tachycardia with nonspecific ST-T wave changes. Now heart rates have improved. Currently on Levophed. Review of Systems General: Reports: ROS unobtainable due to endotracheal tube Medications/Allergies Home Medications Medication Instructions Recorded Confirmed Last Taken Type amlodipine 2.5 mg-benazepril 10 mg 1 cap PO DAILY 12/13/20 07/07/23 Unknown History capsule atorvastatin 40 mg tablet 20 mg PO DAILY 12/13/20 07/07/23 Unknown History ipratropium 0.5 mg-albuterol 3 mg 3 ml inhalation QID PRN unknown 12/13/20 07/07/23 Unknown History (2.5 mg base)/3 mL nebulization soln latanoprost 0.005 % eye drops 1 drp ophthalmic (eye) DAILY 12/13/20 07/07/23 Unknown History meloxicam 15 mg tablet 15 mg PO DAILY PRN Pain 12/13/20 07/07/23 Unknown History montelukast 10 mg tablet 10 mg PO QPM 12/13/20 07/07/23 Unknown History (Singulair) albuterol sulfate 90 mcg/actuation 2 puff inhalation Q6H PRN 06/13/23 07/07/23 Unknown Rx aerosol inhaler shortness of breath or wheezing #8.5 grams aspirin 81 mg tablet,delayed 81 mg PO DAILY 07/07/23 07/07/23 Unknown History release bisacodyl 5 mg tablet See Rx Instructions .Route .COMPLEX 07/07/23 07/07/23 Unknown History brinzolamide 1 %-brimonidine 0.2 % See Rx Instructions .Route .COMPLEX 07/07/23 07/07/23 Unknown History eye drops,suspension (Simbrinza) budesonide 160 mcg-glycopyr 9 2 inh inhalation BID 07/07/23 07/07/23 Unknown History mcg-formot 4.8 mcg/actuation HFA inhaler (Breztri Aerosphere) guaifenesin 400 mg tablet 400 mg PO Q4H PRN thin mucus 07/07/23 07/07/23 Unknown History oxybutynin chloride 10 mg 10 mg PO DAILY 07/07/23 07/07/23 Unknown History tablet,extended release 24 hr oxybutynin chloride 5 mg 5 mg PO DAILY 07/07/23 07/07/23 Unknown History tablet,extended release 24 hr Allergies Allergy/AdvReac Type Severity Reaction Status Date / Time No Known Allergies Allergy Verified 06/13/23 12:55 Current Medications Generic Name Dose Route Start Last Admin Trade Name Freq PRN Reason Stop Dose Admin Albuterol/Ipratropium 3 ml 07/07/23 20:00 07/07/23 19:46 Ipratropium-Albuterol 3 Ml Neb INHALATION 3 ml Q6H.RESP BOB Administration Hydrocortisone Sodium Succinate 100 mg 07/07/23 17:15 07/07/23 17:30 Hydrocortisone 100 Mg/2 Ml Sdv IVP 100 mg Q12H BOB Administration Midazolam HCl 100 mg in 100 mls @ 0 mls/hr 07/07/23 11:45 07/07/23 18:30 Versed IV 4 mg/hr .Q0M BOB 4 mls/hr Titration Protocol Per Protocol norepinephrine 4 mg in 250 mls @ 0 mls/hr 07/07/23 11:45 07/07/23 21:07 Levophed IV 10 mcg/min .Q0M BOB 37.5 mls/hr Titration Protocol Per Protocol Fentanyl 1,000 mcg in 100 mls @ 0 mls/hr 07/07/23 12:00 07/07/23 20:56 Sublimaze IV 100 mcg/hr .Q0M BOB 10 mls/hr Administration Protocol Per Protocol Amiodarone HCl/Dextrose 360 mg in 200 mls @ 0 mls/hr 07/07/23 14:45 07/07/23 17:41 Nexterone IV 0 mg/min .Q0M BOB 0 mls/hr Titration Protocol Per Protocol Sodium Chloride 1,000 mls @ 100 mls/hr 07/07/23 16:49 07/07/23 20:31 Sodium Chloride 0.9% IV 100 mls/hr .Q10H BOB Administration Pantoprazole Sodium 40 mg 07/07/23 18:00 07/07/23 17:30 Pantoprazole 40 Mg Sdv IVP 40 mg BID BOB Administration PFSH Acute PFSH: Medical History Chronic obstructive pulmonary disease HTN (hypertension) Glaucoma Hyperlipidemia Surgical History H/O hernia repair Family History Father Cancer Social History Smoking and tobacco/nicotine status: former use of tobacco/nicotine Quit status (tobacco/nicotine): has quit using Year quit tobacco: 2013 Former quit date comment: Hx of 1.5 PPD x 55 Years Second hand smoke exposure: No Alcohol intake: never Substance/Drug Use: never Lives independently: Yes Marital status: service: Yes Current occupational status: retired Do you think of yourself as: Straight/Heterosexual Current gender identity: Male Vitals/I&O/Wt Last Vital Signs Temp 97.5 F L 07/07/23 20:00 Pulse 69 07/07/23 20:45 Resp 25 H 07/07/23 20:15 BP 96/76 07/07/23 20:45 Pulse Ox 98 07/07/23 20:45 O2 Del Method Mechanical Ventilation 07/07/23 19:46 O2 Flow Rate 3 07/07/23 11:13 FiO2 90 07/07/23 20:00 07/07/23 07/07/23 07/07/23 06:59 14:59 22:59 Intake Total 1553.441 / 3932.770 6811.988 / 3050.429 Balance 1553.441 / 8644.798 5353.988 / 3050.429 Weight last 48 hrs Weight 306 lb 1.6 oz Weight 306 lb 1.6 oz Physical Exam Narrative: GENERAL: Patient is intubated and sedated NECK: No jugular vein distension. [] HEENT: No cyanosis. No icterus. No pallor. [] HEART: Regular S1 and S2. LUNGS: Diminished air entry CENTRAL NERVOUS SYSTEM: Grossly nonfocal. [] EXTREMITIES: Lower extremities with 1+ edema bilaterally. Urinary Catheter Management: Centeno: Cath Placed During This Visit: yes Reason for Continuing Indwelling Catheter: Acute Urinary Retention or Obstruction Urinary Catheter Date of Insertion: 07/07/23 Urinary Catheter Time of Insertion: 13:04 Data 07/08/23 03:35 07/08/23 03:35 Micro: Microbiology 07/07/23 12:20 Gram Stain - Final Sputum - Endotracheal Tube Aspirate A&P Assessment and plan (1) Acute CVA (cerebrovascular accident): (2) Non-STEMI (non-ST elevated myocardial infarction): (3) Respiratory failure requiring intubation: (4) Sedentary lifestyle: (5) Acute ischemic right ICA stroke: (6) Cardiomegaly: (7) Chronic respiratory failure with hypoxia: (8) Shock: Plan Patient has presented with stroke and has received TNKase. Has right internal carotid artery 70% stenosis. Will need intervention once stable. Once appropriate per neurology, can start aspirin and Plavix. Troponin elevation is significant. Will need ischemic workup once stable. Order echocardiogram Patient is requiring Levophed. Depending on heart function, could be cardiogenic shock. Maintain maps above 65. Thank you for involving us with care of this patient. We will continue to follow. Please call with questions Consult Attestations Medical Necessity Statement: Care expected to cross 2 midnights. Coding Level of Care Code Acute Code for [facility] Fwd Diagnoses Acute CVA (cerebrovascular accident) I63.9 Non-STEMI (non-ST elevated myocardial infarction) I21.4 Respiratory failure requiring intubation J96.90 Sedentary lifestyle Z91.89 Acute ischemic right ICA stroke I63.231 Cardiomegaly I51.7 Chronic respiratory failure with hypoxia J96.11 Shock R57.9
[2023-07-07 21:59] LABS: Glucose Point of Care 158 mg/dL (70-110)
[2023-07-08] VITALS (99 sets, daily range): BP systolic 77–143; BP diastolic 43–91; PULSE 60–94; RESP 14–31; TEMP 36.3–36.8; O2SAT 89–100
[2023-07-08 01:23] LABS: Glucose Point of Care 150 mg/dL (70-110)
[2023-07-08] MEDS: norepinephrine 4 MG/250 ML BAG 30 MG IV ×2 (02:18→23:56)
[2023-07-08] MEDS: ipratropium-albuterol 3 mL Neb INHALATION ×4 (02:27→20:08)
[2023-07-08 04:22] LABS: Basophils % 0.1 %; Hematocrit 41.3 % (37-53); Lymphocytes # 0.6 10^3/uL (0.8-4.8); Lymphocytes % 6.6 %; Mean Corpuscular HGB Conc 30.8 g/dL (30-55); Mean Corpuscular Hemoglobin 30.9 pg (27-33); Mean Corpuscular Volume 100.5 fl (82-101); Mean Platelet Volume 10.4 fL (7.4-10.4); Monocytes # 1.1 10^3/uL (0.2-0.9); Monocytes % 11.8 %; Neutrophils # 7.49 10^3/uL (1.8-7.7); Neutrophils % 81.3 %; Nucleated Red Blood Cells % 0 %; Platelet Count 155 10^3/cmm (157-399); Red Blood Count 4.11 10^6/uL (3.85-5.65); Red Cell Distribution Width 14.1 % (12.1-15.1); White Blood Count 9.22 10^3/uL (3.29-11.43)
[2023-07-08 04:38] LABS: Blood Urea Nitrogen 26 mg/dL (8-23); Carbon Dioxide 26 mmol/L (22-29); Chloride 102 mmol/L (98-107); Glucose 141 mg/dL (65-115); Magnesium 2.4 mg/dL (1.7-2.3); Osmolality Calculated 289 mOsm/kg (285-295); Sodium 136 mmol/L (136-145)
[2023-07-08 04:40] LABS: Anion Gap 14.1 (5-19); Potassium 6.1 mmol/L (3.5-5.1)
[2023-07-08] MEDS: hydrocortisone 100 mg/2 mL SDV IVP ×2 (04:48→17:34)
--- NOTE | 2023-07-08 06:00 | USCV_ITS ---
Diogenes Menendez Age: 77 Gender: M : 1945 Exam Date: 07/08/2023 13:46 Ordering Phys: Hugo Vogt DO Technologist: Dominic Colon Exam Location: [facility] [place] Indication: nstemi BP: 86 / 52 HR: 81 Rhythm: Sinus Technical Quality: Adequate MEASUREMENTS (Male / Female) Normal Values 2D ECHO LVOT Diameter 2.0 cm LV Ejection Fraction MOD 2C 59.9 % LV Ejection Fraction 2C AL 60.8 % LA Diameter 3.8 cm LA Width 3.5 cm LA Height 5.0 cm RA Width 5.0 cm RA Height 5.1 cm Aorta at Sinotubular Diameter 3.0 cm M-MODE Aortic Annulus Diameter 3.6 cm LA Ao Ratio MM 1.0 DOPPLER AV Peak Velocity 127.0 cm/s LVOT Peak Velocity 88.0 cm/s AV Area Cont Eq vti 3.0 cm squared AV Area Cont Eq pk 2.2 cm squared MV Area PHT 5.8 cm squared Mitral E to A Ratio 0.8 MV E' Velocity 40.0 cm/s TR Peak Velocity 259.1 cm/s TR Peak Gradient 26.9 mmHg TR Mean Velocity 184.4 cm/s TR Mean Gradient 15.5 mmHg TR Velocity Time Integral 53.1 cm Right Atrial Pressure 8.0 mmHg Pulmonary Artery Systolic Pressu 34.9 mmHg PV Peak Velocity 77.0 cm/s RV Acceleration Time 0.1 s RV Ejection Time 0.2 s RV AcT/ET 0.5 FINDINGS Left Ventricle Right Ventricle Right Atrium Left Atrium Mitral Valve Aortic Valve Tricuspid Valve Pulmonic Valve Pericardium Aorta IVC CONCLUSIONS Technically very limited quality echocardiogram. Contrast used to assess LV systolic function. Cardiac structures are not well-visualized. Valves are also not well-visualized. LV systolic function is normal with EF of 60 to 65%. No regional wall motion abnormalities are seen. RV is grossly hypokintic but because of limited visualization, accurate assessment not possible Caleb Rosales MD (Electronically Signed) Final Date: 09 July 2023 11:12 S
[2023-07-08] MEDS: fentaNYL 1,000 MCG/100 ML BAG 10 MCG IV (06:10)
[2023-07-08] MEDS: sodium chloride 0.9% 1,000 ML 100 ML IV (06:12)
[2023-07-08] MEDS: pantoprazole 40 mg SDV IVP ×2 (08:04→17:34)
--- NOTE | 2023-07-08 10:23 | P.PN_ITS ---
Subjective 2 Subjective: Patient is stable. Off of Levophed. Vitals/I&O/Wt Last Vital Signs Temp 98.3 F 07/08/23 08:00 Pulse 67 07/08/23 10:00 Resp 31 H 07/08/23 08:00 BP 104/63 07/08/23 10:00 Pulse Ox 95 07/08/23 10:00 O2 Del Method Mechanical Ventilation 07/08/23 10:00 O2 Flow Rate 3 07/07/23 11:13 FiO2 40 07/08/23 08:54 07/07/23 07/08/23 07/08/23 22:59 06:59 14:59 Intake Total 1496.988 / 3050.429 1396.691 / 4447.120 33.175 / 33.175 Output Total 500 / 500 Balance 1496.988 / 3050.429 896.691 / 3947.120 33.175 / 33.175 Weight last 48 hrs Weight 308 lb Weight 306 lb 1.6 oz Weight 306 lb 1.6 oz Physical Exam 2 Narrative: GENERAL: Patient is intubated and sedated NECK: No jugular vein distension. [] HEENT: No cyanosis. No icterus. No pallor. [] HEART: Regular S1 and S2. LUNGS: Diminished air entry CENTRAL NERVOUS SYSTEM: Grossly nonfocal. [] EXTREMITIES: Lower extremities with 1+ edema bilaterally. Urinary Catheter Management: Centeno: Cath Placed During This Visit: yes Reason for Continuing Indwelling Catheter: Accurate Measurement of Urinary Output in Critically Ill Patients Urinary Catheter Date of Insertion: 07/07/23 Urinary Catheter Time of Insertion: 13:04 Data 07/08/23 03:35 07/08/23 03:35 Micro: Microbiology 07/07/23 12:20 Gram Stain - Final Sputum - Endotracheal Tube Aspirate A&P Assessment and plan (1) Acute CVA (cerebrovascular accident): (2) Non-STEMI (non-ST elevated myocardial infarction): (3) Respiratory failure requiring intubation: (4) Sedentary lifestyle: (5) Acute ischemic right ICA stroke: (6) Cardiomegaly: (7) Chronic respiratory failure with hypoxia: (8) Shock: Plan Patient has presented with stroke and has received TNKase. Has right internal carotid artery 70% stenosis. Will need intervention once stable. Once appropriate per neurology, can start aspirin and Plavix. Troponin elevation is significant. Will need ischemic workup once stable. Awaiting echocardiogram. Now off of Levophed. Thank you for involving us with care of this patient. We will continue to follow. Please call with questions Attestations 2 Medical Necessity Statement*: Care expected to cross 2 midnights. Coding Level of Care Code Acute Code for g Fwd Diagnoses Acute CVA (cerebrovascular accident) I63.9 Non-STEMI (non-ST elevated myocardial infarction) I21.4 Respiratory failure requiring intubation J96.90 Sedentary lifestyle Z91.89 Acute ischemic right ICA stroke I63.231 Cardiomegaly I51.7 Chronic respiratory failure with hypoxia J96.11 Shock R57.9
--- NOTE | 2023-07-08 11:37 | P.PN_ITS ---
Subjective 2 Subjective: Patient is off Levophed this morning Continue IV fluids Will get ABG after 1:00 Patient did not do well with weaning trial, started experiencing myoclonus We had to put him back on sedation Will do daily sedation vacation He will need MRI once he is extubated He will also need an angiogram Gutiérrez will take him once he is stable No signs of PE Vitals/I&O/Wt Last Vital Signs Temp 98.3 F 07/08/23 08:00 Pulse 67 07/08/23 10:00 Resp 17 07/08/23 11:13 BP 104/63 07/08/23 10:00 Pulse Ox 95 07/08/23 11:13 O2 Del Method Mechanical Ventilation 07/08/23 10:00 O2 Flow Rate 3 07/07/23 11:13 FiO2 45 07/08/23 11:13 07/07/23 07/08/23 07/08/23 22:59 06:59 14:59 Intake Total 1496.988 / 3050.429 1396.691 / 4447.120 33.175 / 33.175 Output Total 500 / 500 Balance 1496.988 / 3050.429 896.691 / 3947.120 33.175 / 33.175 Weight last 48 hrs Weight 139.706 kg Weight 138.845 kg Weight 138.845 kg Physical Exam 2 Narrative: Patient is intubated and sedated Off Levophed Looks euvolemic No active fever Abdomen soft Bowel sounds sluggish Neuroexam is limited Pinpoint pupils on sedatives Urinary Catheter Management: Centeno: Cath Placed During This Visit: yes Reason for Continuing Indwelling Catheter: Accurate Measurement of Urinary Output in Critically Ill Patients Urinary Catheter Date of Insertion: 07/07/23 Urinary Catheter Time of Insertion: 13:04 Data 07/08/23 03:35 07/08/23 03:35 Micro: Microbiology 07/07/23 12:20 Gram Stain - Final Sputum - Endotracheal Tube Aspirate A&P Assessment and plan (1) Cardiomegaly: (2) Cardiogenic shock: (3) Non-STEMI (non-ST elevated myocardial infarction): (4) Exertional dyspnea: (5) Acute CVA (cerebrovascular accident): (6) Acute ischemic right ICA stroke: (7) Chronic respiratory failure with hypoxia: (8) Respiratory failure requiring intubation: (9) YOSELIN (acute kidney injury): Plan Respiratory failure require mechanical ventilation FiO2 has been decreased PEEP of 8 We can decrease PEEP as well Sedation vacation on daily basis Continue IV fluids No signs of PE Acute CVA status post TNKase We can repeat CBC and BMP for tomorrow and will get ABG after 1:00 Non-STEMI 24 hours after TNKase we can start antiplatelet therapy Appreciate cardiology recommendation Patient will need an angiogram once stable Place orogastric/NG tube Right internal carotid 70% stenosis patient will need and arterectomy Full code Patient's blood sample was hemolyzed potassium is 6 point 1 repeat BMP at 1 PM Drug screen is negative No signs of UTI Attestations 2 Medical Necessity Statement*: Continue ICU management Coding Level of Care Code Critical Care >/= 30 minutes Critical care time (in minutes): 35 The high probability of a clinically significant, sudden or life threatening deterioration, as referenced in this documentation, required my full and direct attention, intervention and personal management. The critical care time shown is in addition to time spent performing any reported separately billable procedures and includes the following: [x] Data and vital sign review and interpretation [x ] Patient assessment, examination and intervention [x] Medication orders and management [x] Patient/Family updates as able [x] Care Coordination and Documentation. Diagnoses Cardiomegaly I51.7 Cardiogenic shock R57.0 Non-STEMI (non-ST elevated myocardial infarction) I21.4 Exertional dyspnea R06.09 Acute CVA (cerebrovascular accident) I63.9 Acute ischemic right ICA stroke I63.231 Chronic respiratory failure with hypoxia J96.11 Respiratory failure requiring intubation J96.90 YOSELIN (acute kidney injury) N17.9
[2023-07-08] MEDS: propofol 1,000 MG/100 ML INJ 4.19000000000000039 MG IV (13:28)
[2023-07-08 14:02] LABS: ABG PH Result 7.26 (7.35-7.45); Arterial Blood Gas Hematocrit 36.9 % (42-52); Base Excess ABG -0.6 mmol/L (-2.0-2.0); Blood Gas Allen Test Pos; Blood Gas Sample Type Arterial; HCO3 ABG 27.5 mmol/L (22-26); PO2 ABG 83.6 mmHg (80.0-100.0)
[2023-07-08 14:05] LABS: Blood Gas Operator Identificat MONRO; Blood Gas Sample Site Radial, left; Oxygen Device VENT; PO2 FiO2 Ratio Arterial Blood 0
[2023-07-08 14:10] LABS: Glucose Point of Care 116 mg/dL (70-110)
[2023-07-08 15:07] LABS: Alanine Aminotransferase 15 U/L (0-41); Albumin Level 3.3 g/dL (3.5-5.2); Alkaline Phosphatase 81 U/L (40-130); Anion Gap 15.4 (5-19); Aspartate Amino Transferase 16 U/L (0-40); Blood Urea Nitrogen 26 mg/dL (8-23); Calcium 8.2 mg/dL (8.5-10.5); Carbon Dioxide 23 mmol/L (22-29); Chloride 101 mmol/L (98-107); Glucose 112 mg/dL (65-115); Osmolality Calculated 284 mOsm/kg (285-295); Potassium 5.4 mmol/L (3.5-5.1); Sodium 134 mmol/L (136-145); Total Bilirubin 0.3 mg/dL (0.15-1.2); Total Protein 6.3 g/dL (6.6-8.7)
[2023-07-08 15:08] LABS: Creatinine Clr Calc Pharmacy 62.4857
[2023-07-08] MEDS: perflutren protein-a microsphr 0.22 mg/mL SDV 3 mL IV (15:39)
[2023-07-08] MEDS: fentaNYL 1,000 MCG/100 ML BAG 12.5 MCG IV (16:11)
[2023-07-08 17:18] LABS: ABG PCO2 59.7 mmHg (35-45); ABG PH Result 7.27 (7.35-7.45); Alveolar-Arterial Oxygen Gradi 24.5 mmHg (5-10); Arterial Blood Gas Hematocrit 36.6 % (42-52); Base Excess ABG -0.7 mmol/L (-2.0-2.0); Blood Gas Allen Test Pos; Blood Gas Operator Identificat MONRO; Blood Gas Sample Site Radial, right; Blood Gas Sample Type Arterial; Blood Gas Tidal Volume 0.55; Carboxyhemoglobin 0.8 %THgb (0.4-20.1); HCO3 ABG 27.2 mmol/L (22-26); HGB O2 Sat 87.7 % (95-100); Ionized Calcium Level - ABG 1.3 mmol/L (1.1-1.4); Methemoglobin 0.5 % (0.4-1.5); Oxygen Device VENT; Oxygen Saturation ABG 88.9; PO2 ABG 58.7 mmHg (80.0-100.0); PO2 FiO2 Ratio Arterial Blood 0; Potassium Level - ABG 5.3 mmol/L (3.5-5.0); Total Hemoglobin 11.9 g/dL (14-18)
[2023-07-08] MEDS: sodium chloride 0.9% 1,000 ML 75 ML IV (17:34)
--- NOTE | 2023-07-08 17:45 | XRR_ITS ---
PROCEDURE INFORMATION: Exam: XR Chest Exam date and time: 07/08/2023 8:08 PM Age: 77 years old Clinical indication: Device placement; Ng tube; Patient HX: Og tube placement TECHNIQUE: Imaging protocol: Radiologic exam of the chest. Views: 1 view. COMPARISON: CT angio chest PE protcl [id number] 07/07/2023 4:50 PM FINDINGS: Tubes, catheters and devices: Endotracheal tube tip in place 3 cm above the jean. Enteric tube tip below the diaphragm over the gastric bubble. Lungs: See Heart/Mediastinum finding. Pleural spaces: Unremarkable. No pleural effusion. No pneumothorax. Heart/Mediastinum: Cardiomegaly and pulmonary vascular congestion. Bones/joints: Unremarkable. XR/XR chest 1V portable [id number] IMPRESSION: 1. Endotracheal tube tip in place 3 cm above the jean. 2. Enteric tube tip below the diaphragm over the gastric bubble. 3. Cardiomegaly and pulmonary vascular congestion.
[2023-07-08] MEDS: fentaNYL 1,000 MCG/100 ML BAG 17.5 MCG IV (21:20)
[2023-07-08] MEDS: propofol 1,000 MG/100 ML INJ 16.7699999999999996 MG IV (22:24)
[2023-07-09] VITALS (55 sets, daily range): BP systolic 70–129; BP diastolic 46–82; PULSE 54–98; RESP 16–18; TEMP 36.8–36.9; O2SAT 87–97
[2023-07-09] MEDS: fentaNYL 1,000 MCG/100 ML BAG 17.5 MCG IV (02:40)
[2023-07-09] MEDS: propofol 1,000 MG/100 ML INJ 16.7699999999999996 MG IV (02:40)
[2023-07-09] MEDS: ipratropium-albuterol 3 mL Neb INHALATION ×4 (03:23→19:58)
[2023-07-09 04:38] LABS: Basophils % 0.2 %; Hematocrit 43.6 % (37-53); Lymphocytes # 0.6 10^3/uL (0.8-4.8); Lymphocytes % 6.3 %; Mean Corpuscular HGB Conc 27.5 g/dL (30-55); Mean Corpuscular Hemoglobin 30.2 pg (27-33); Mean Corpuscular Volume 109.8 fl (82-101); Mean Platelet Volume 10.6 fL (7.4-10.4); Monocytes # 1.2 10^3/uL (0.2-0.9); Monocytes % 12.9 %; Neutrophils # 7.73 10^3/uL (1.8-7.7); Neutrophils % 80.3 %; Nucleated Red Blood Cells % 0 %; Platelet Count 125 10^3/cmm (157-399); Red Blood Count 3.97 10^6/uL (3.85-5.65); Red Cell Distribution Width 14.5 % (12.1-15.1); White Blood Count 9.63 10^3/uL (3.29-11.43)
[2023-07-09 05:04] LABS: Alanine Aminotransferase 16 U/L (0-41); Albumin Level 3.3 g/dL (3.5-5.2); Alkaline Phosphatase 76 U/L (40-130); Anion Gap 13.4 (5-19); Aspartate Amino Transferase 26 U/L (0-40); Blood Urea Nitrogen 31 mg/dL (8-23); Calcium 8.3 mg/dL (8.5-10.5); Carbon Dioxide 25 mmol/L (22-29); Chloride 102 mmol/L (98-107); Creatinine Clr Calc Pharmacy 58.5803; Globulin 2.7 g/dL (1.3-4.6); Glucose 141 mg/dL (65-115); Osmolality Calculated 289 mOsm/kg (285-295); Potassium 5.4 mmol/L (3.5-5.1); Sodium 135 mmol/L (136-145); Total Bilirubin 0.4 mg/dL (0.15-1.2)
[2023-07-09 05:24] LABS: ABG PCO2 54.7 mmHg (35-45); ABG PH Result 7.29 (7.35-7.45); Arterial Blood Gas Hematocrit 39.7 % (42-52); Base Excess ABG -1.4 mmol/L (-2.0-2.0); Blood Gas Allen Test Pos; Blood Gas Operator Identificat JB; Blood Gas Sample Site Radial, left; Blood Gas Sample Type Arterial; Blood Gas Tidal Volume 0.55; Carboxyhemoglobin 1.1 %THgb (0.4-20.1); HCO3 ABG 26.1 mmol/L (22-26); HGB O2 Sat 92.5 % (95-100); Ionized Calcium Level - ABG 1.3 mmol/L (1.1-1.4); Methemoglobin 0.6 % (0.4-1.5); Oxygen Device VENT; Oxygen Saturation ABG 94.1; PO2 ABG 70.7 mmHg (80.0-100.0); PO2 FiO2 Ratio Arterial Blood 0; Potassium Level - ABG 4.9 mmol/L (3.5-5.0)
[2023-07-09] MEDS: hydrocortisone 100 mg/2 mL SDV IVP (05:47)
[2023-07-09] MEDS: sodium chloride 0.9% 1,000 ML 75 ML IV (05:53)
[2023-07-09] MEDS: propofol 1,000 MG/100 ML INJ 50.2899999999999991 MG IV ×6 (06:35→18:16)
--- NOTE | 2023-07-09 07:38 | P.PN_ITS ---
Subjective 2 Subjective: Patient's condition overall unchanged. ECHO shows normal LV systolic function Vitals/I&O/Wt Last Vital Signs Temp 98.4 F 07/09/23 04:00 Pulse 97 07/09/23 06:30 Resp 16 07/09/23 03:24 BP 116/68 07/09/23 06:30 Pulse Ox 87 L 07/09/23 06:30 O2 Del Method Mechanical Ventilation 07/09/23 03:24 O2 Flow Rate 3 07/07/23 11:13 FiO2 55 07/09/23 03:24 07/08/23 07/09/23 07/09/23 22:59 06:59 14:59 Intake Total 474.270 / 0724.693 4907.405 / 2847.116 Output Total 400 / 400 425 / 825 Balance 74.270 / 963.586 3436.405 / 2022.116 Weight last 48 hrs Weight 313 lb 0.902 oz Weight 308 lb Weight 306 lb 1.6 oz Weight 306 lb 1.6 oz Physical Exam 2 Narrative: GENERAL: Patient is intubated and sedated NECK: No jugular vein distension. [] HEENT: No cyanosis. No icterus. No pallor. [] HEART: Regular S1 and S2. LUNGS: Diminished air entry CENTRAL NERVOUS SYSTEM: Grossly nonfocal. [] EXTREMITIES: Lower extremities with 1+ edema bilaterally. Urinary Catheter Management: Centeno: Cath Placed During This Visit: yes Reason for Continuing Indwelling Catheter: Accurate Measurement of Urinary Output in Critically Ill Patients Urinary Catheter Date of Insertion: 07/07/23 Urinary Catheter Time of Insertion: 13:04 Data 07/09/23 03:40 07/10/23 07:13 Micro: Microbiology 07/07/23 12:20 Gram Stain - Final Sputum - Endotracheal Tube Aspirate Sputum Culture - Preliminary A&P Assessment and plan (1) Acute CVA (cerebrovascular accident): (2) Non-STEMI (non-ST elevated myocardial infarction): (3) Respiratory failure requiring intubation: (4) Sedentary lifestyle: (5) Acute ischemic right ICA stroke: (6) Cardiomegaly: (7) Chronic respiratory failure with hypoxia: (8) Shock: Plan Patient has presented with stroke and has received TNKase. Has right internal carotid artery 70% stenosis. Will need intervention once stable. Once appropriate per neurology, can start aspirin Troponin elevation is significant. Will need ischemic workup once patient is stable. Echo shows normal LV systolic function Thank you for involving us with care of this patient. We will continue to follow. Please call with questions Attestations 2 Medical Necessity Statement*: Care expected to cross 2 midnights. Coding Level of Care Code Acute Code for Chg Fwd Diagnoses Acute CVA (cerebrovascular accident) I63.9 Non-STEMI (non-ST elevated myocardial infarction) I21.4 Respiratory failure requiring intubation J96.90 Sedentary lifestyle Z91.89 Acute ischemic right ICA stroke I63.231 Cardiomegaly I51.7 Chronic respiratory failure with hypoxia J96.11 Shock R57.9
[2023-07-09] MEDS: fentaNYL 1,000 MCG/100 ML BAG 20 MCG IV (08:17)
[2023-07-09] MEDS: norepinephrine 4 MG/250 ML BAG 37.5 MG IV ×2 (08:17→16:04)
[2023-07-09] MEDS: pantoprazole 40 mg SDV IVP ×2 (08:17→18:16)
[2023-07-09] MEDS: piperacillin-tazobactam 3.375 GM in sodium chloride 0.9% (plus) 50 ML IV ×2 (08:17→15:16)
[2023-07-09] MEDS: FUROsemide 10 mg/mL SDV 10mL 60 MG IVP (08:18)
--- NOTE | 2023-07-09 12:46 | P.PN_ITS ---
Subjective 2 Subjective: Myoclonus present Patient is currently on fentanyl As per cardiology preserved action fraction Potassium 5.4 per creatinine 1.6 Patient developed congestive heart failure clinically fluid overloaded positive fluid balance discontinue IV fluids Given high-dose Lasix today Vitals/I&O/Wt Last Vital Signs Temp 98.4 F 07/09/23 04:00 Pulse 73 07/09/23 12:30 Resp 18 07/09/23 10:39 BP 89/60 07/09/23 12:30 Pulse Ox 93 07/09/23 12:30 O2 Del Method Mechanical Ventilation 07/09/23 08:00 O2 Flow Rate 3 07/07/23 11:13 FiO2 60 07/09/23 10:39 07/08/23 07/09/23 07/09/23 22:59 06:59 14:59 Intake Total 474.270 / 6577.420 0636.405 / 2847.116 290.041 / 290.041 Output Total 400 / 400 425 / 825 Balance 74.270 / 741.147 5224.405 / 2022.116 290.041 / 290.041 Weight last 48 hrs Weight 142 kg Weight 139.706 kg Weight 138.845 kg Physical Exam 2 Narrative: Signs of fluid overload Discontinued fluids Intubated sedated Myoclonus present Intubated and sedated S1, S2 sinus rhythm Afebrile Abdomen soft Urinary Catheter Management: Centeno: Cath Placed During This Visit: yes Reason for Continuing Indwelling Catheter: Accurate Measurement of Urinary Output in Critically Ill Patients Urinary Catheter Date of Insertion: 07/07/23 Urinary Catheter Time of Insertion: 13:04 Data 07/09/23 03:40 07/09/23 03:40 Micro: Microbiology 07/07/23 12:20 Gram Stain - Final Sputum - Endotracheal Tube Aspirate Sputum Culture - Preliminary A&P Assessment and plan (1) Cardiomegaly: (2) Cardiogenic shock: (3) Non-STEMI (non-ST elevated myocardial infarction): (4) Exertional dyspnea: (5) Shock: (6) YOSELIN (acute kidney injury): (7) Acute CVA (cerebrovascular accident): (8) Acute ischemic right ICA stroke: (9) Respiratory failure requiring intubation: (10) Hyperkalemia: (11) Acute CHF: Plan Cardiogenic shock: Resolved Off Levophed Blood pressure soft we might need to restart pressors today Acute CHF exacerbation added high-dose Lasix echo showed preserved ejection fraction Non-STEMI Resume aspirin and Plavix via gastric tube. Respiratory failure requiring mechanical ventilation FiO2 55% PEEP 8 Anticipate improvement with more diuresis Acute CVA status post TNKase: Cognitive function to be reassessed Myoclonus noted Repeat CT head today Sedation vacation today Right internal carotid 70% stenosis: Will need endarterectomy YOSELIN: Cardiorenal anticipate improvement with more diuresis Short-term plan is to do sedation vacation, and extubate Long-term plan is to do MRI and transfer him to [place] for endarterectomy It is all dependent on his cognitive function If he is not able to wake up follow commands then prognosis will be considered guarded He is full code N.p.o. Will keep him on therapeutic dose of Lovenox once daily Spoke with site administrator, echo has been reported as preserved action fraction Patient may need stress test once he is more stable and extubated Attestations 2 Medical Necessity Statement*: Continue ICU management Coding Level of Care Code Critical Care >/= 30 minutes Critical care time (in minutes): 35 The high probability of a clinically significant, sudden or life threatening deterioration, as referenced in this documentation, required my full and direct attention, intervention and personal management. The critical care time shown is in addition to time spent performing any reported separately billable procedures and includes the following: [x] Data and vital sign review and interpretation [x ] Patient assessment, examination and intervention [x] Medication orders and management [x] Patient/Family updates as able [x] Care Coordination and Documentation. Diagnoses Cardiomegaly I51.7 Cardiogenic shock R57.0 Non-STEMI (non-ST elevated myocardial infarction) I21.4 Exertional dyspnea R06.09 Shock R57.9 YOSELIN (acute kidney injury) N17.9 Acute CVA (cerebrovascular accident) I63.9 Acute ischemic right ICA stroke I63.231 Respiratory failure requiring intubation J96.90 Hyperkalemia E87.5 Acute CHF I50.9
--- NOTE | 2023-07-09 12:58 | XR_ITS ---
WS: [id number] CHEST XRAY TECHNIQUE: Portable chest. CLINICAL INFORMATION: Post PICC insertion COMPARISON: 07/08/2023 FINDINGS: RIGHT PICC line with tip in the azygos vein on the initial imaging. PICC line retracted on the subsequent imaging with tip in the distal SVC. Endotracheal tube with tip above the jean. Enteric tube with tip below the diaphragm. Heart: Cardiomegaly. Lungs: Patchy infiltrates in the RIGHT greater than LEFT lower lobes. This appears progressed compare d to the prior radiograph. Tiny pleural effusions. Bones: Osteopenia. IMPRESSION: 1. RIGHT PICC line with tip in the azygos vein on the initial imaging. PICC line retracted on the subsequent imaging with tip in the distal SVC. 2. Bilateral RIGHT greater than LEFT lower lobe infiltrates have progressed. Small pleural effusions .
--- NOTE | 2023-07-09 14:12 | PC.NURSE ---
Addendum entered by Cydney Vigil RN 07/09/23 15:52: Radiologist report shows tip in distal SVC, in good position for use. Original Note: Triple lumen PICC placed to right basilic vein. Referred to vascular access nurse for PICC placement due to need for vasopressors. Pt intubated. Pt called and risks and benefits and informed consent obtained via phone. Right arm assessed with right basilic vein measuring 5.2 mm, straight, and apparent best choice for placement. Using sterile technique and MST, right basilic vein accessed x 1 stick. Mid-arm circumference measured 10 cm from right AC 34 cm. Trimmed cath 51 cm with 0 cm external length noted. CXR shows tip in mid SVC, ok to use per radiologist. Line secured with stat-lock. Insertion site covered with Biopatch and TSM. Report given to bedside nurseJennifer.
--- NOTE | 2023-07-09 15:01 | PC.SOCIAL ---
Pg 2 IMM Explained to pt's via phone, Pg 2 IMM. No questions voiced. Provided pt a copy. Initialed, dated, & timed a copy & placed in chart.
[2023-07-09] MEDS: aspirin 81 mg EC Tablet PO (15:16)
[2023-07-09] MEDS: fentaNYL 1,000 MCG/100 ML BAG 7.5 MCG IV (15:38)
[2023-07-09 15:43] LABS: Glucose Point of Care 153 mg/dL (70-110)
--- NOTE | 2023-07-09 19:10 | PC.NURSE ---
Pt remains sedated and on ventilator. Sedation titrated down this shift.
[2023-07-09] MEDS: propofol 1,000 MG/100 ML INJ 41.9099999999999966 MG IV (20:11)
[2023-07-09 21:44] LABS: Glucose Point of Care 158 mg/dL (70-110)
[2023-07-09] MEDS: propofol 1,000 MG/100 ML INJ 29.3399999999999999 MG IV (23:11)
[2023-07-09] MEDS: norepinephrine 4 MG/250 ML BAG 30 MG IV (23:44)
[2023-07-10] VITALS (49 sets, daily range): BP systolic 49–102; BP diastolic 29–65; PULSE 66–100; RESP 16–23; TEMP 37–37.4; O2SAT 73–98
[2023-07-10] MEDS: piperacillin-tazobactam 3.375 GM in sodium chloride 0.9% (plus) 50 ML IV ×3 (00:23→17:00)
[2023-07-10] MEDS: ipratropium-albuterol 3 mL Neb INHALATION ×3 (01:55→13:40)
[2023-07-10 02:04] LABS: Glucose Point of Care 120 mg/dL (70-110)
[2023-07-10] MEDS: fentaNYL 1,000 MCG/100 ML BAG 7.5 MCG IV (03:45)
[2023-07-10] MEDS: propofol 1,000 MG/100 ML INJ 25.1499999999999986 MG IV (03:46)
[2023-07-10] MEDS: chlorhexidine gluconate 4% Btl 118 mL 1 APPLIC TOPICAL (03:46)
[2023-07-10 06:16] LABS: Glucose Point of Care 125 mg/dL (70-110)
[2023-07-10] MEDS: propofol 1,000 MG/100 ML INJ 29.3399999999999999 MG IV (07:26)
[2023-07-10] MEDS: norepinephrine 4 MG/250 ML BAG 30 MG IV (07:27)
[2023-07-10 07:52] LABS: Alanine Aminotransferase 15 U/L (0-41); Albumin Level 2.7 g/dL (3.5-5.2); Alkaline Phosphatase 68 U/L (40-130); Blood Urea Nitrogen 31 mg/dL (8-23); Calcium 8.1 mg/dL (8.5-10.5); Carbon Dioxide 24 mmol/L (22-29); Chloride 98 mmol/L (98-107); Creatinine Clr Calc Pharmacy 62.2674; Globulin 3.1 g/dL (1.3-4.6); Glucose 121 mg/dL (65-115); Osmolality Calculated 286 mOsm/kg (285-295); Sodium 134 mmol/L (136-145); Total Bilirubin 0.5 mg/dL (0.15-1.2); Total Protein 5.8 g/dL (6.6-8.7)
[2023-07-10 08:10] LABS: Anion Gap 16.7 (5-19); Aspartate Amino Transferase 37 U/L (0-40); Potassium 4.7 mmol/L (3.5-5.1)
--- NOTE | 2023-07-10 08:28 | P.PN_ITS ---
Subjective 2 Subjective: Patient's condition unchanged Vitals/I&O/Wt Last Vital Signs Temp 99.4 F 07/10/23 05:30 Pulse 84 07/10/23 08:00 Resp 22 H 07/10/23 08:00 BP 90/57 07/10/23 08:00 Pulse Ox 83 L 07/10/23 08:00 O2 Del Method Mechanical Ventilation 07/10/23 08:00 O2 Flow Rate 3 07/07/23 11:13 FiO2 40 07/10/23 08:00 07/09/23 07/10/23 07/10/23 22:59 06:59 14:59 Intake Total 464.104 / 1254.145 382.264 / 1636.409 321.109 / 321.109 Output Total 1600 / 1600 1050 / 2650 Balance -1135.896 / -345.855 -667.736 / -1013.591 321.109 / 321.109 Weight last 48 hrs Weight 306 lb Weight 313 lb 0.902 oz Physical Exam 2 Narrative: GENERAL: Patient is intubated and sedated NECK: No jugular vein distension. [] HEENT: No cyanosis. No icterus. No pallor. [] HEART: Regular S1 and S2. LUNGS: Diminished air entry CENTRAL NERVOUS SYSTEM: Grossly nonfocal. [] EXTREMITIES: Lower extremities with 1+ edema bilaterally. Urinary Catheter Management: Centeno: Cath Placed During This Visit: yes Reason for Continuing Indwelling Catheter: Accurate Measurement of Urinary Output in Critically Ill Patients Urinary Catheter Date of Insertion: 07/07/23 Urinary Catheter Time of Insertion: 13:04 Data 07/09/23 03:40 07/10/23 07:13 Micro: Microbiology 07/07/23 12:20 Gram Stain - Final Sputum - Endotracheal Tube Aspirate Sputum Culture - Final A&P Assessment and plan (1) Acute CVA (cerebrovascular accident): (2) Non-STEMI (non-ST elevated myocardial infarction): (3) Respiratory failure requiring intubation: (4) Sedentary lifestyle: (5) Acute ischemic right ICA stroke: (6) Cardiomegaly: (7) Chronic respiratory failure with hypoxia: (8) Shock: Plan Patient's overall condition has not changed. If patient's overall condition improves, will consider ischemic workup. Please call with questions Attestations 2 Medical Necessity Statement*: Care expected to cross 2 midnights Coding Level of Care Code Acute Code for Chg Fwd Diagnoses Acute CVA (cerebrovascular accident) I63.9 Non-STEMI (non-ST elevated myocardial infarction) I21.4 Respiratory failure requiring intubation J96.90 Sedentary lifestyle Z91.89 Acute ischemic right ICA stroke I63.231 Cardiomegaly I51.7 Chronic respiratory failure with hypoxia J96.11 Shock R57.9
--- NOTE | 2023-07-10 09:02 | CT_ITS ---
WS: [id number] CT HEAD TECHNIQUE: Noncontrast CT of the head obtained from the skullbase to the vertex. CLINICAL INFORMATION: f/u, AMS, COMPARISON: None. DLP: 1147.[address] scans at [facility] use at least one of these dose optimization techniques: automated e xposure control; mA and/or kV adjustment per patient size (includes targeted exams where dose is matc hed to clinical indication); or iterative reconstruction. FINDINGS: Low-attenuation changes in the LEFT posterior frontal, parietal, anterior temporal, and par asagittal LEFT occipital lobe is consistent with subacute ischemia. Mild mass effect on the LEFT late ral ventricle and LEFT occipital and temporal horns. No midline shift. Additional small wedge-shaped focus of subacute ischemia in the RIGHT cerebellum. Additional area of subacute ischemia in the RIGHT parieto-occipital junction. Additional small subacute to chronic infarct in the LEFT cerebellum. No acute intraparenchymal hemorrhage.] Moderate small vessel changes. Moderate parenchymal volume loss. Mucosal thickening in the paranasal sinuses. Mastoid air cells are well aerated. IMPRESSION: 1. Low-attenuation change involving the LEFT posterior frontal and parietal lobes extending into the LEFT anterior temporal lobe and LEFT parasagittal occipital lobe consistent with subacute ischemia. Mild mass effect in the LEFT lateral ventricle. No hydrocephalus or midline shift. 2. Additional wedge-shaped area of subacute ischemia in the RIGHT cerebellum. 3. Additional small area of subacute ischemia in the RIGHT parieto-occipital junction. 4. Additional small subacute to chronic infarct in the LEFT cerebellum. 5. Findings in multiple vascular territories. Consider embolic etiology. 6. No intracranial hemorrhage. 7. Moderate small vessel changes with moderate parenchymal volume loss. Message LEFT for Boaz Haines MD at 07/10/2023 1:49 PM.
[2023-07-10] MEDS: pantoprazole 40 mg SDV IVP ×2 (09:04→17:25)
[2023-07-10] MEDS: aspirin 81 mg EC Tablet PO (09:04)
[2023-07-10 09:31] LABS: Glucose Point of Care 101 mg/dL (70-110)
[2023-07-10] MEDS: propofol 1,000 MG/100 ML INJ 37.7199999999999989 MG IV (10:24)
[2023-07-10 10:59] LABS: ABG PCO2 49.3 mmHg (35-45); ABG PH Result 7.36 (7.35-7.45); Alveolar-Arterial Oxygen Gradi 29.2 mmHg (5-10); Arterial Blood Gas Hematocrit 35.6 % (42-52); Base Excess ABG 1.4 mmol/L (-2.0-2.0); Blood Gas Allen Test Pos; Blood Gas Operator Identificat CAK; Blood Gas Sample Site Radial, left; Blood Gas Sample Type Arterial; Blood Gas Tidal Volume 0.55; Carboxyhemoglobin 0.8 %THgb (0.4-20.1); HCO3 ABG 27.5 mmol/L (22-26); HGB O2 Sat 92.5 % (95-100); Ionized Calcium Level - ABG 1.2 mmol/L (1.1-1.4); Methemoglobin 0.6 % (0.4-1.5); Oxygen Device VENT; Oxygen Saturation ABG 93.8; PO2 ABG 70.2 mmHg (80.0-100.0); PO2 FiO2 Ratio Arterial Blood 0; Potassium Level - ABG 4.1 mmol/L (3.5-5.0); Total Hemoglobin 11.6 g/dL (14-18)
[2023-07-10 11:44] LABS: Glucose Point of Care 130 mg/dL (70-110)
--- NOTE | 2023-07-10 12:04 | P.PN_ITS ---
Subjective 2 Subjective: Patient was breathing over the vent I decreased his PEEP because blood pressure was low Current ventilator settings VC AC FiO2 50% PEEP 6 PEEP decreased from 9 Increase sedation patient was breathing over the vent Biting the tube Repeat CT head today Vitals/I&O/Wt Last Vital Signs Temp 99.4 F 07/10/23 05:30 Pulse 89 07/10/23 10:00 Resp 18 07/10/23 11:00 BP 92/60 07/10/23 10:00 Pulse Ox 93 07/10/23 10:38 O2 Del Method Mechanical Ventilation 07/10/23 08:00 O2 Flow Rate 3 07/07/23 11:13 FiO2 50 07/10/23 10:38 07/09/23 07/10/23 07/10/23 22:59 06:59 14:59 Intake Total 464.104 / 1254.145 382.264 / 1636.409 588.937 / 588.937 Output Total 1600 / 1600 1050 / 2650 Balance -1135.896 / -345.855 -667.736 / -1013.591 588.937 / 588.937 Weight last 48 hrs Weight 138.799 kg Weight 142 kg Physical Exam 2 Narrative: Breathing above the vent Intubated sedated FiO2 50% PEEP 6 Low blood pressure Afebrile Abdomen soft Centeno catheter in place I did not appreciate myoclonus today Urinary Catheter Management: Centeno: Cath Placed During This Visit: yes Reason for Continuing Indwelling Catheter: Accurate Measurement of Urinary Output in Critically Ill Patients Urinary Catheter Date of Insertion: 07/07/23 Urinary Catheter Time of Insertion: 13:04 Data 07/09/23 03:40 07/10/23 07:13 Micro: Microbiology 07/07/23 12:20 Gram Stain - Final Sputum - Endotracheal Tube Aspirate Sputum Culture - Final A&P Assessment and plan (1) Cardiomegaly: (2) Cardiogenic shock: (3) Acute CHF: (4) Non-STEMI (non-ST elevated myocardial infarction): (5) Exertional dyspnea: (6) Shock: (7) YOSELIN (acute kidney injury): (8) Hyperkalemia: (9) Acute CVA (cerebrovascular accident): (10) Acute ischemic right ICA stroke: (11) Chronic respiratory failure with hypoxia: (12) Respiratory failure requiring intubation: (13) Sedentary lifestyle: (14) Nicotine addiction: Plan Today my plan is to increase the dose of sedation patient was breathing above the vent with low blood pressure Still requiring hemodynamic support FiO2 50% PEEP 6 decrease PEEP of 9-6, increase FiO2 40% to 50% Repeat CT head today Afebrile Continue Zosyn for aspiration pneumonia Currently on aspirin, will add atorvastatin, I will keep him on therapeutic Lovenox If blood pressure stays stable by tomorrow we will do sedation vacation, weaning trial Patient will need ischemic workup once extubated, he will also need MRI head Appreciate cardiology recommendations Amiodarone on hold Full code updated Attestations 2 Medical Necessity Statement*: Continue ICU management Coding Level of Care Code Critical Care >/= 30 minutes Critical care time (in minutes): 30 The high probability of a clinically significant, sudden or life threatening deterioration, as referenced in this documentation, required my full and direct attention, intervention and personal management. The critical care time shown is in addition to time spent performing any reported separately billable procedures and includes the following: [x] Data and vital sign review and interpretation [x ] Patient assessment, examination and intervention [x] Medication orders and management [x] Patient/Family updates as able [x] Care Coordination and Documentation. Diagnoses Cardiomegaly I51.7 Cardiogenic shock R57.0 Acute CHF I50.9 Non-STEMI (non-ST elevated myocardial infarction) I21.4 Exertional dyspnea R06.09 Shock R57.9 YOSELIN (acute kidney injury) N17.9 Hyperkalemia E87.5 Acute CVA (cerebrovascular accident) I63.9 Acute ischemic right ICA stroke I63.231 Chronic respiratory failure with hypoxia J96.11 Respiratory failure requiring intubation J96.90 Sedentary lifestyle Z91.89 Nicotine addiction F17.200
[2023-07-10] MEDS: propofol 1,000 MG/100 ML INJ 33.5300000000000011 MG IV (12:49)
[2023-07-10] MEDS: fentaNYL 1,000 MCG/100 ML BAG 15 MCG IV (12:49)
[2023-07-10] MEDS: acetaminophen 500 mg Tablet PO (13:24)
[2023-07-10] MEDS: enoxaparin 150 mg/mL Syringe 140 MG SUBCUT (13:24)
[2023-07-10] MEDS: norepinephrine 4 MG/250 ML BAG 45 MG IV (13:40)
--- NOTE | 2023-07-10 13:40 | PC.NURSE ---
called for update. Update given.
[2023-07-10 14:29] LABS: Glucose Point of Care 116 mg/dL (70-110)
[2023-07-10 16:53] LABS: Glucose Point of Care 127 mg/dL (70-110)
[2023-07-10] MEDS: propofol 1,000 MG/100 ML INJ 16.7699999999999996 MG IV (17:01)
--- NOTE | 2023-07-10 18:06 | PC.NURSE ---
Comfort care discussed over the phone with patient's and daughter by this nurse and Dr. Haines. They are unable to make it to the hospital and understand patient's condition. Both and daughter elect comfort care.
--- NOTE | 2023-07-10 18:25 | W.PM.EVENTAC ---
Event Note Event Note: Patient is getting hypotensive despite being on Levophed CT scan showing significant infarct with petechial hemorrhage Off sedation patient did not show any neurologic response Myoclonus was noted yesterday I have discussed this current findings with the , was called twice today Considering guarded prognosis she has opted for comfort care and terminally extubate him today
--- NOTE | 2023-07-10 20:20 | PC.NURSE ---
Family notified of patient's transition to comfort measures. Family clarified that the patient was [facility]. Family unable to provide any information past that due to lack of current internet availability. [facility] called and instructed us to call them at time of passing and they would make arrangements with home from there. Family updated.
[2023-07-10] MEDS: glycopyrrolate 0.2 mg/mL SDV 2 mL 0.200000000000000011 MG IV (20:39)
--- NOTE | 2023-07-10 21:28 | PC.NURSE ---
Addendum entered by Alfred Abraham RN 07/10/23 22:28: This nurse verified asystole for full minute. Original Note: Patient presented with asystole @2109 verified by BIANCA Sims and Alfred VALENZUELA for full min. [facility] notified and released by Sam confirmation # [id number]. Awaiting [facility] confirmation. Patient is scheduled to be donated through [facility], verified by company and spouse.
--- NOTE | 2023-07-10 22:22 | PC.NURSE ---
Addendum entered by Angelo Franco RN 07/10/23 22:24: This nurse witnessed BIANCA Sims waste 22 mls of Fentanyl and 78 mls of Propofol. Original Note: 22 mls of Fentanyl and 78 mls of propofol wasted with Levi Palm RN.
--- NOTE | 2023-07-10 22:28 | PC.NURSE ---
Addendum entered by Levi Cardenas RN 07/10/23 23:15: [facility] updated staff that patient was not a candidate for them. paste mixing supervisor updated. [facility] requested that we hold body until morning for them to discuss again with family. Original Note: Patient has not been cleared by [facility] at this time. [facility] to be notified once we receive confirmation from [facility]. Family has given permission to release body to home via [facility] direction. Wedding ring removed and bagged for powerhouse mechanic.
--- NOTE | 2023-07-10 23:26 | PC.NURSE ---
Dav Time Pt placed in [facility] @ [id number]. Personal items in morgue with pt include sealed bag with wedding band and sealed bag with home medications. Awaiting release from [facility] and Home preference from .
--- NOTE | 2023-07-11 18:22 | P.DES_ITS ---
Discharge Providers DDS Date of Admission: 07/07/23 16:00 Date Summary Completed: 07/13/23 Attending Provider at Admission: Boaz Haines MD Time of : 21:09 Attending Provider at Discharge: Boaz Haines MD Primary Care Provider: RIKKI Campbell Diagnoses Hospital Diagnoses (1) Cardiomegaly: (2) Cardiogenic shock: (3) Acute CHF: (4) Non-STEMI (non-ST elevated myocardial infarction): (5) Exertional dyspnea: (6) Shock: (7) YOSELIN (acute kidney injury): (8) Hyperkalemia: (9) Acute CVA (cerebrovascular accident): (10) Acute ischemic right ICA stroke: Permanent Problem Comments: Greater than 70% stenosis (11) Chronic respiratory failure with hypoxia: (12) Respiratory failure requiring intubation: (13) Sedentary lifestyle: (14) Nicotine addiction: Reason for Visit Reason for Visit LEFT SIDE WEAKNESS Summary Date and Time of Date of : 07/10/23 Time of : 21:09 Summary Summary: 77-year-old male who suffered from a massive stroke, came in from home, got intubated in the ER while getting TNKase, he was diagnosed with non-STEMI, there was concern for thromboembolic phenomenon, he was accepted at [facility] however he was not stable to be transferred, 48 hours or after TNKase we repeated CT head which showed massive stroke multiple cortical area involvement,, with sedation vacation he was showing signs of seizure, tremors and myoclonus, he had right internal carotid proximal stenosis up to 70%, majority of the time his rhythm remains sinus with intermittent atrial flutter/A-fib. He was deemed not a s uitable candidate to be on heparin Lovenox or aspirin because of petechial hemorrhage noted on CT head. Multiple phone calls were made to to discuss goals of care with his who decided not to come to the hospital because she is also sick and is suffering from debilitating condition such as scoliosis. Nurses witnessed my phone calls with the whenever we discussed goals of care, patient was made comfort care and terminally extubated. Charge ICU nurse was also present and kept Notified Additional Data Confirmation of as documented by pronouncing clinician: no pulse, no respirations, no heart sounds and pupils fixed and dilated Family: contacted Additional persons at bedside: nursing staff Attending/PCP notified?: I am attending Was code activated?: No Autopsy requested?: No Advance directives?: No Hospice patient?: Yes Discharge Plan Discharge Patient Disposition: At Medical Facility Condition: Stable Prescriptions: No Action amlodipine-benazepril 2.5-10 mg capsule 1 cap PO DAILY atorvastatin 40 mg tablet 20 mg PO DAILY latanoprost 0.005 % drops 1 drp ophthalmic (eye) DAILY montelukast [Singulair] 10 mg tablet 10 mg PO QPM meloxicam 15 mg tablet 15 mg PO DAILY PRN (Reason: Pain) ipratropium-albuterol 0.5 mg-3 mg(2.5 mg base)/3 mL solution for nebulization 3 ml inhalation QID PRN (Reason: unknown) albuterol sulfate 90 mcg/actuation HFA aerosol inhaler 2 puff inhalation Q6H PRN (Reason: shortness of breath or wheezing) Qty: 8.5 6RF oxybutynin chloride 10 mg tablet extended release 24hr 10 mg PO DAILY Breztri Aerosphere 160-9-4.8 mcg/actuation HFA aerosol inhaler 2 inh INHALATION BID Aspir-81 81 mg Tablet,Delayed Release (Dr/Ec) 81 mg PO DAILY oxybutynin chloride 5 mg tablet extended release 24hr 5 mg PO DAILY guaifenesin 400 mg Tablet 400 mg PO Q4H PRN (Reason: thin mucus) Simbrinza 1-0.2 % drops,suspension See Rx Instructions .ROUTE .COMPLEX Rx Instructions: as directed bisacodyl 5 mg Tablet See Rx Instructions .ROUTE .COMPLEX Rx Instructions: as directed as needed Referrals: Karla Scherer FNP-C [Primary Care Provider] - Probable Cause of Probable cause of : Cardiac arrest DS Attestations Time Spent in /Discharge Care*: greater than 30 min Quality - AMI: AMI present?: No Quality - Stroke: CVA present?: No Quality - VTE: VTE present?: No Coding Level of Care Code Acute Code for [facility] Diagnoses Cardiomegaly I51.7 Cardiogenic shock R57.0 Acute CHF I50.9 Non-STEMI (non-ST elevated myocardial infarction) I21.4 Exertional dyspnea R06.09 Shock R57.9 YOSELIN (acute kidney injury) N17.9 Hyperkalemia E87.5 Acute CVA (cerebrovascular accident) I63.9 Acute ischemic right ICA stroke I63.231 Chronic respiratory failure with hypoxia J96.11 Respiratory failure requiring intubation J96.90 Sedentary lifestyle Z91.89 Nicotine addiction F17.200
== END 2023-07-10 21:09 | disposition expired | DRG 64 ==
LOC: ER 11:57 → ICU 16:48
PROVIDERS: Admitting Provider Internal Medicine; Emergency Provider Family Medicine; PCP Nurse Practitioner Family; Visit Provider Internal Medicine
DX: I63.231 Cerebral infarction due to unspecified occlusion or stenosis of right carotid arteries (principal); I21.4 Non-ST elevation (NSTEMI) myocardial infarction; I50.33 Acute on chronic diastolic (congestive) heart failure; N17.9 Acute kidney failure, unspecified; G81.94 Hemiplegia, unspecified affecting left nondominant side; I11.0 Hypertensive heart disease with heart failure; E87.5 Hyperkalemia; R57.0 Cardiogenic shock; Z87.891 Personal history of nicotine dependence; J44.9 Chronic obstructive pulmonary disease, unspecified; R47.01 Aphasia; R29.718 NIHSS score 18; Z79.82 Long term (current) use of aspirin; I48.91 Unspecified atrial fibrillation; Z51.5 Encounter for palliative care; R23.3 Spontaneous ecchymoses
CPT/HCPCS: 31500; 36415; 36416; 36573; 36592; 36600; 51702; 70450; 70496; 70498; 71045; 71275; 80048; 80051; 80053; 80306; 81001; 82330; 82803; 82805; 82962; 83735; 83880; 84443; 84484; 85025; 85610; 85730; 87070; 87205; 93005; 94002; 94003; 94640; 94799; 96365; 96366; 96367; 96372; 96375; 96376; 99291; 99292; A4222; C1751; C8929; C9113; J0282; J0283; J0330; J1650; J1720; J1940; J2250; J2543; J2704; J3010; J3101; J3490; J7030; J7040; Q9956; Q9967